=== PATIENT | female | born 1935 | race Caucasian/White ===

== ENCOUNTER 2019-02-20 19:58 | Inpatient (IN) ==
[2019-02-20 21:24] LABS: URINE SOURCE CATH
[2019-02-20 21:27] LABS: BILIRUBIN URINE NEGATIVE (NEGATIVE); BLOOD URINE NEGATIVE (NEGATIVE); COLOR YELLOW; GLUCOSE URINE NEGATIVE (NEGATIVE); KETONE URINE NEGATIVE (NEGATIVE); LEUKOCYTES URINE NEGATIVE (NEGATIVE); NITRITE URINE NEGATIVE (NEGATIVE); PROTEIN URINE NEGATIVE (NEGATIVE); TURBIDITY URINE CLEAR (CLEAR); UROBILINOGEN URINE NORMAL (NORMAL)
[2019-02-20 21:28] LABS: UR EPITHELIAL CELLS <10 /HPF (<10); URINE RBC <10 /HPF (<10); URINE WBC <10 /HPF (<10)
[2019-02-20 21:29] LABS: URINE BACTERIA NEGATIVE /HPF
[2019-02-20 21:42] LABS: HEMATOCRIT 32.2 % (37.0-47.0); HEMOGLOBIN 10.2 g/dL (12.0-16.0); LYMPH% 17.6 % (20.5-51.1); MCH 27.6 PG (27-31); MCHC 31.7 g/dL (33-37); MCV 87.3 FL (81-99); MPV 10.1 FL (7.4-10.4); NEUT% 74.1 % (42.2-75.2); PLT 184 X1000 (130-400); RBC 3.69 XMIL (4.2-5.4); RDW 14.9 % (11.5-14.5); WBC 10.01 X1000 (4.8-10.8)
[2019-02-20 21:43] LABS: BASO# 0.02 X1000 (0.0-0.2); BASO% 0.2 % (0.0-0.8); EOS# 0.24 X1000 (0.0-0.7); EOS% 2.4 % (0.0-10.0); IMM GRAN# 0.04 X1000 (0.0-0.04); IMM GRAN% 0.4 % (0.0-0.5); LYMPH# 1.76 X1000 (1.2-3.4); MONO# 0.53 X1000 (0.11-0.59); MONO% 5.3 % (1.7-9.3); NEUT# 7.42 X1000 (1.4-6.5)
--- NOTE | 2019-02-20 21:45 | PROVIDER DOCUMENTATION ---
This chart was entered by Miesha Marcial Scribe, acting as scribe for Arvind Bland MD. HPI-Musculoskeletal Pain/Inj - GENERAL Stated Complaint: FALL ROTATED RIGHT HIP Time Seen by Provider: 02/20/19 19:58 Source: patient - HX OF PRESENT ILLNESS-MUSKULOSKELTAL Nature of Presenting Problem: pt is a 83 yr old female presenting via EMS with complaint of right hip pain post fall, pt reports tonight while putting her pants on she lost her balance and fell onto her right side, pt does not believe she struck her head, denies any LOC, neck or back pain. pt is unable to ambulate or weight bear since fall. pt denies any other pain or complaints Quality of Pain: reports: aching Severity in ED: moderate Onset/Duration: just prior to arrival Timing: still present Modifying Factors: improves with: movement (worsens pain) Any recent injury?: Yes Locality of Occurance: Home Similar Symptoms Previously?: No Recently seen or treated by another doctor?: No - HIP/PELVIS PAIN/INJURY Hip Pain Location: reports: hip (R) Pain Radiation: reports: no radiation Context / Method of Injury: reports: fall Associated Symptoms: denies: lower back pain, muscle spasms, numbness in legs/feet, tingling in legs/feet, weakness in legs/feet Review of Systems - Adult - REVIEW OF SYSTEMS - ADULT Constitutional: reports: no symptoms reported Eyes: reports: no symptoms reported Ears, Nose, Mouth & Throat: reports: no symptoms reported Cardiovascular: denies: chest pain, palpitations, syncope Respiratory: denies: shortness of breath Gastrointestinal: denies: abdominal pain, nausea, vomiting Genitourinary: reports: no symptoms reported Musculoskeletal: reports: joint pain. denies: back pain, neck pain Integumentary: reports: no symptoms reported Neurological: denies: dizziness/vertigo, headache/migraines, syncope Psychiatric: reports: no symptoms reported Endocrine: reports: no symptoms reported Hematologic/Lymphatic: reports: no symptoms reported Allergic/Immunologic: reports: no symptoms reported All Other Systems: Reviewed and Negative Past History - Adult - PAST MEDICAL HISTORY-ADULT Review of Records: reports: Old Records Reviewed, Nursing Assessment Review, Medications Reviewed, Social history reviewed & non-contributory. Major Childhood Illnesses: reports: denies history Cardiovascular: reports: A-Fib, CHF, HTN Respiratory: reports: denies history Gastrointestinal: reports: denies history Obstetrical/Gynecological: reports: denies history Genitourinary: reports: denies history Musculoskeletal: reports: denies history Neurological: reports: denies history Endocrine/Immune: reports: Diabetes Other Conditions: reports: denies history - PRIOR SURGERIES/PROCEDURES Surgical/Procedure History: reports: appendectomy, orthopedic (extremity) - IMMUNIZATION STATUS Childhood Immunizations: See Nurse Assessment Flu Vaccine: See Nurse Assessment - FAMILY HISTORY Family History: reviewed, not pertinent - SOCIAL HISTORY Smoking: denies Substance Use: denies Living Situation: alone Physical Exam-Injury Related - Physical Exam-Injury Related Initial Vital Signs Reviewed: Yes General Appearance: appears well, alert, no apparent distress Immobilization?: negative: backboard, C-collar Eyes: PERRL/EOMI Head, Ears, Nose, Mouth & Throat: normocephalic/atraumatic, moist mucous membran es Neck: non-tender, full range of motion, supple, normal inspection Respiratory: chest non-tender, lungs clear, normal breath sounds Cardiovascular: normal peripheral pulses, regular rate, rhythm Peripheral Pulses: radial (R): 2+, radial (L): 2+, dorsalis-pedis (R): 2+, dorsalis-pedis (L): 2+ Abdominal Exam: normal bowel sounds, non tender, soft Back Exam: normal inspection, no CVA tenderness, no vertebral tenderness Extremity: no calf tenderness, normal capillary refill, tenderness (right hip), other (right leg short/rotated externally) Integumentary: normal color, warm/dry Neurologic: grossly normal Psych/Mental Status: normal mood/affect - Glascow Coma Score Best Eye Response ([place]): (4) open spontaneously Best Verbal Response ([place]): (5) oriented Best Motor Response ([place]): (6) obeys commands [place] Total: 15 Progress - PLAN OF CARE/RESULTS Progress/Plan/Lab Results: Orders Category Date Time Status Admit [facility] Routine AdmDCTranf 02/21/19 02:29 Active Activity - Strict Bedrest ORDERED Care 02/21/19 02:29 Active FSBS/Accucheck Result AC + HS Care 02/21/19 02:29 Active Richard Cath Insertion ORDERED Care 02/20/19 21:31 Completed Intake and Output-Strict ORDERED Care 02/21/19 02:29 Active Misc. NRSG Communication Order DIRECTED Care 02/21/19 00:40 Completed Nursing- MD Consult Request ROUTINE Care 02/21/19 00:42 Completed Vital Signs Order Q 4-HR ASSESS Care 02/21/19 02:29 Active Z-Document. for Tele Applied ORDERED Care 02/21/19 02:29 Completed Physician/Provider Consults Routine Cons 02/21/19 08:00 Ordered NPO Diet 02/21/19 00:01 Completed CHEST-1 VIEW [RAD] Stat Exams 02/20/19 20:[address] HEAD/C-SPINE W/O CONTRAST [CT] Stat Exams 02/20/19 20:[address] PELVIS W/O CONTRAST [CT] Stat Exams 02/20/19 20:18 Completed FEMUR MIN 2 VIEWS RIGHT [RAD] Stat Exams 02/20/19 20:18 Completed A1C HGB W EST AVG GLUCOSE [CHEM] Routine Lab 02/21/19 01:21 Completed BASIC METABOLIC PANEL [CHEM] Routine Lab 02/21/19 06:14 Completed CBC WITH DIFF [HEME] Routine Lab 02/21/19 06:14 Completed CBC WITH ELECTRONIC DIFF [HEME] Stat Lab 02/20/19 21:24 Completed COMPREHENSIVE METABOLIC PANEL [CHEM] Stat Lab 02/20/19 21:24 Completed PT [PROTIME WITH INR] [COAG] Stat Lab 02/21/19 01:21 Completed PTT [COAG] Stat Lab 02/21/19 01:21 Completed TSH Routine Lab 02/21/19 06:14 Completed TYPE & SCREEN [BBK] Stat Lab 02/21/19 01:21 Completed UA NIMS W/REFLEX CULT [URINALYSIS] Stat Lab 02/20/19 21:09 Completed 0.9% Sodium Chloride Inj [Ns] 1,000 ml Med 02/21/19 00:39 Discontinued IV 75 mls/hr 0.9% Sodium Chloride Inj [Ns] 1,000 ml Med 02/21/19 00:44 Discontinued IV 75 mls/hr Acetaminophen [Tylenol] Med 02/21/19 02:29 Discontinued 650 mg PO Q6H PRN PRN Carvedilol [Coreg] Med 02/21/19 09:00 Discontinued 3.125 mg PO BID Cyanocobalamin/FA/Pyridoxine [Foltx] Med 02/21/19 09:00 Active 1 each PO DAILY Insulin Lispro [Humalog] Med 02/21/19 07:00 Active See Protocol SUBQ 0700,1100,1600,2100 Morphine Med 02/20/19 23:45 Discontinued 2 mg IV NOW ONE Morphine Med 02/21/19 00:43 Discontinued 2 mg IV Q3H PRN PRN Ondansetron [Zofran] Med 02/20/19 23:44 Discontinued 4 mg IV NOW ONE Ondansetron [Zofran] Med 02/21/19 00:43 Active 4 mg IV Q4-6H PRN PRN PRAVAstatin [Pravachol] Med 02/21/19 09:00 Discontinued 10 mg PO DAILY Telemetry [OM.EQ] Routine Oth 02/21/19 02:29 Active EKG [EKG] Routine Ther 02/21/19 08:00 Completed EKG [EKG] Stat Ther 02/20/19 23:05 Draft Transfer/Admit Order [TRANSFER] Routine Transfer 02/21/19 00:44 Completed Result Diagrams: 02/24/19 06:15 02/23/19 16:11 - EKG 1 Time of EKG reading by physician:: 01:00 EKG Read and Signed by:: Arvind Bland EKG Interpretation (*Must complete 3 of following elements*): Abnormal (RBBB, left anteroir fasicular block) Rate: 55 Rhythm: afib with slow ventricular response [place]: normal QRS: RBB SD Interval: normal ST Wave: normal - XRAY 1 XRAY: Right XRAY Study: Femur Impression: Abnormal (Signed FEMUR MIN 2 VIEWS RIGHT - 02/20/2019 INDICATION: fall TECHNIQUE: Four views COMPARISON: None FINDINGS: There is a comminuted, nearly nondisplaced intertrochanteric fracture of the right proximal femur. No distal fractures. IMPRESSION: Slightly displaced comminuted intertrochanteric right hip fracture. Electronically signed by Los Olivia 02/20/2019 10:07 PM 02/20/192206 Interpreting Physician: Los Olivia MD Dictated Date/Time: 02/20/192205 cc: Arvind Bland MD; Jarek Blank MD) Comparison with other Films: no prior study 2 XRAY Study: Chest Impression: Abnormal ( CHEST-1 VIEW - 02/20/2019 INDICATION: fall COMPARISON: 03/29/2017 FINDINGS: There is borderline cardiomegaly. Pulmonary vascularity is normal. No infiltrates or edema. IMPRESSION: Cardiomegaly. Electronically signed by Los Olivia 02/20/2019 10:06 PM 02/20/192205 Interpreting Physician: Los Olivia MD Dictated Date/Time: 02/20/192205 cc: Arvind Bland MD; Jarek Blank MD) - CT/MRI 1 CT Study: Pelvis Impression: Abnormal ( CT PELVIS W/O CONTRAST - 02/20/2019 INDICATION: fall COMPARISON: None FINDINGS: There is a slightly displaced, severely comminuted intertrochanteric right hip fracture. The left hip is intact. There is moderate degeneration of the sacroiliac joints and symphysis pubis. IMPRESSION: Severely comminuted right intertrochanteric hip fracture. This exam was performed using automated exposure control, adjustment of mA or kV according to patient size, and/or use of iterative reconstruction technique Electronically signed by Los Olivia 02/20/2019 9:55 PM 02/20/192154 Interpreting Physician: Los Olivia MD Dictated Date/Time: 02/20/192152 cc: Arvind Bland MD; Jarek Blank MD) Comparison with other Films: no prior study 2 CT Study: Head Impression: Normal ( CT HEAD/C-SPINE W/O CONTRAST - 02/20/2019 INDICATION: fall COMPARISON: None FINDINGS: Head CT: There is some mild periventricular white matter chronic microvascular disease. The ventricles and sulci are normal in size and contour. No intracranial mass or hemorrhage. The skull is intact. The sinuses are clear. Cervical spine: Alignment is anatomic. Vertebral body heights and intervertebral disc spaces are preserved. There is mild disc degeneration at C5-6 and C6-7. No fracture or subluxation. No central canal stenosis. IMPRESSION: No acute injury. This exam was performed using automated exposure control, adjustment of mA or kV according to patient size, and/or use of iterative reconstruction technique Electronically signed by Los Olivia 02/20/2019 9:50 PM 02/20/192149 Interpreting Physician: Los Olivia MD Dictated Date/Time: 02/20/192146 cc: Arvind Bland MD; Jarek Blank MD) Comparison with other Films: no prior study - CONSULTS/PCP/HOSPITALIST Notification #1 *Consult/PCP/Hospitalist*: Dr Mabry Time Discussed: 23:10 Reason/Comments: discussed plan of care for pt admit Consult Disposition: Admit #2 Consult: Dr Ahn Time Discussed: 00:10 Reason/Comments: plan of care for admitted pt Consult Disposition: other (will consult on pt in AM, admit to hospitalist) Departure - Departure Date of Disposition Decision: 02/21/19 Time of Disposition Decision: 00:15 DIAGNOSIS: Intertrochanteric fracture of right femur Disposition: ADMITTED INPATIENT 09 Certified Medical Emergency: Emergent Condition: Stable - Critical Care Note This patient required my direct & personal management of CC.: No Attestation - Physician/ VALERI Attestation Patient care was provided by Advanced Practice Provider:: No The physician spent face to face time with patient:: Yes Advanced Practice Provider documentation review:: Supervising physician onsite and consulted in the evaluation and care of this patient. The physician did have a face to face encounter with the patient. This chart was documented by the indicated scribe, (Miesha Marcial Scribe) and accurately reflects the services I performed and decisions made by me, Arvind Bland MD, as attested by the provider's signature.
--- NOTE | 2019-02-20 21:53 | Diag Imaging Result Doc PS360 ---
CT HEAD/C-SPINE W/O CONTRAST - 02/20/2019 INDICATION: fall COMPARISON: None FINDINGS: Head CT: There is some mild periventricular white matter chronic microvascular disease. The ventricles and sulci are normal in size and contour. No intracranial mass or hemorrhage. The skull is intact. The sinuses are clear. Cervical spine: Alignment is anatomic. Vertebral body heights and intervertebral disc spaces are preserved. There is mild disc degeneration at C5-6 and C6-7. No fracture or subluxation. No central canal stenosis. IMPRESSION: No acute injury. This exam was performed using automated exposure control, adjustment of mA or kV according to patient size, and/or use of iterative reconstruction technique Electronically signed by Los Olivia 02/20/2019 9:50 PM
[2019-02-20 21:55] LABS: ALB/GLOB RATIO 1.4; CALCIUM 9.3 mg/dL (8.8-10.2); CREATININE 1.1 mg/dL (0.5-0.9); POTASSIUM 4.6 mmol/L (3.5-5.1); TOTAL BILIRUBIN 0.26 mg/dL (0.20-1.00); TOTAL PROTEIN 6.8 g/dL (6.3-8.3)
--- NOTE | 2019-02-20 21:57 | Diag Imaging Result Doc PS360 ---
CT PELVIS W/O CONTRAST - 02/20/2019 INDICATION: fall COMPARISON: None FINDINGS: There is a slightly displaced, severely comminuted intertrochanteric right hip fracture. The left hip is intact. There is moderate degeneration of the sacroiliac joints and symphysis pubis. IMPRESSION: Severely comminuted right intertrochanteric hip fracture. This exam was performed using automated exposure control, adjustment of mA or kV according to patient size, and/or use of iterative reconstruction technique Electronically signed by Los Olivia 02/20/2019 9:55 PM
--- NOTE | 2019-02-20 22:09 | Diag Imaging Result Doc PS360 ---
CHEST-1 VIEW - 02/20/2019 INDICATION: fall COMPARISON: 03/29/2017 FINDINGS: There is borderline cardiomegaly. Pulmonary vascularity is normal. No infiltrates or edema. IMPRESSION: Cardiomegaly. Electronically signed by Los Olivia 02/20/2019 10:06 PM
--- NOTE | 2019-02-20 22:09 | Diag Imaging Result Doc PS360 ---
FEMUR MIN 2 VIEWS RIGHT - 02/20/2019 INDICATION: fall TECHNIQUE: Four views COMPARISON: None FINDINGS: There is a comminuted, nearly nondisplaced intertrochanteric fracture of the right proximal femur. No distal fractures. IMPRESSION: Slightly displaced comminuted intertrochanteric right hip fracture. Electronically signed by Los Olivia 02/20/2019 10:07 PM
[2019-02-20] MEDS ORDERED: MORPHINE IV ONE ×2 (23:44→23:45)
[2019-02-20] MEDS ORDERED: ZOFRAN IV ONE (23:44)
[2019-02-21] MEDS ORDERED: NS 1,000 ML IV ONE ×2 (00:39→00:44)
[2019-02-21] MEDS ORDERED: ZOFRAN IV PRN ×2 (00:43→16:14)
--- NOTE | 2019-02-21 01:20 | EKG Report ---
Test Performed on : 02/21/2019 01:00:20 AM Test Reason : CP Blood Pressure : / mmHG Vent. Rate : 055 BPM Atrial Rate : 300 BPM P-R Int : 000 ms QRS Dur : 128 ms QT Int : 460 ms P-R-T Axes : 000 -70 -23 degrees QTc Int : 440 ms Atrial fibrillation. with slow ventricular response. Right bundle branch block Left anterior fascicular block Bifascicular block Abnormal ECG When compared with ECG of 22-MAR-2018 17:59, Significant changes have occurred Unconfirmed Result
[2019-02-21 02:04] LABS: INR 1.65; PROTIME 19.9 Seconds (11.0-16.0)
[2019-02-21 02:05] LABS: PTT 36.9 Seconds (22.3-41.8)
[2019-02-21] MEDS: MORPHINE IV PRN ×2 (02:05→05:05)
[2019-02-21] MEDS ORDERED: TYLENOL PO PRN (02:29)
[2019-02-21 03:04] LABS: HEMOGLOBIN A1C 6.4 % (4.8-6.0)
--- NOTE | 2019-02-21 06:20 | HISTORY AND PHYSICAL ---
CHIEF COMPLAINT: Fall with hip pain. HISTORY OF PRESENT ILLNESS: Ms. Mirza is a very pleasant 83-year-old female who came into the emergency room after having a fall with right hip pain status post fall. She reports she was putting her pajamas on, lost balance and fell to the right side. Does not believe she hit her head. Denies any loss of consciousness, neck or back pain. Unable to ambulate or bear weight since the fall, and is unable to move the right lower extremity related to the pain. CT scan of her pelvis showed a severely comminuted right intertrochanteric hip fracture. She will be admitted with Orthopedics consultation. PAST MEDICAL HISTORY: Hyperlipidemia, congestive heart failure, diabetes mellitus type 2. PREVIOUS SURGICAL HISTORY: Appendectomy, nicholas in left leg after fracture. SOCIAL HISTORY: Lives alone. She is . No tobacco, alcohol, or illicit drugs. She does have family to help care for her. FAMILY HISTORY: Father had prostate cancer. Mother had diabetes mellitus. A sister had diabetes mellitus as well. ALLERGIES: PENICILLIN. HOME MEDICATIONS: Eliquis 5 mg p.o. b.i.d., enalapril 20 mg p.o. daily, Lasix 20 mg p.o. daily, glyburide 2.5 mg p.o. daily, lisinopril 20 mg p.o. daily, metformin 500 mg p.o. b.i.d., potassium chloride 10 mEq p.o. daily, Onglyza 5 mg p.o. daily, carvedilol 3.125 mg p.o. b.i.d., Foltx 1 p.o. daily, pravastatin 10 mg p.o. daily. REVIEW OF SYSTEMS: A 14-point review of systems conducted with the patient. Pertinent positives listed above in the HPI. All other systems were reviewed and found to be negative. PHYSICAL EXAMINATION: VITAL SIGNS: Temperature 98.3, pulse 57, respirations 18, blood pressure 155/85, oxygen saturation 95% on room air. GENERAL: An 83-year-old female, very pleasant, alert and oriented x3, answers all questions appropriately. HEENT: Head is atraumatic, normocephalic. Pupils equal, round, react to light. Extraocular eye movements intact. Sclerae are anicteric. Conjunctivae are mildly pale. Oral mucosa is mildly dry. NECK: Supple. No JVD. No thyromegaly. Trachea is midline. No cervical lymphadenopathy. CARDIAC: S1, S2 appreciated. No murmurs, rubs or gallops. LUNGS: Clear to auscultation bilaterally. No rhonchi, wheezes or rales. Symmetric rise and fall with respirations. ABDOMEN: Soft, nondistended, nontender. Bowel sounds present in all 4 quadrants, normoactive. No pulsatile masses or organomegaly. EXTREMITIES: No clubbing, cyanosis or edema. Multiple areas of ecchymoses noted on bilateral upper and lower extremities. Left lower extremity has a large raised hematoma of about 4 cm; 2+ pedal pulses bilaterally. Right lower extremity is neurovascularly intact. MUSCULOSKELETAL: Patient defers movement of right lower extremity related to pain. She can wiggle her toes. She was not able to bear weight. Left lower extremity appears to have normal range of motion as well as both upper extremities. SKIN: Warm, dry and intact. Multiple areas of ecchymoses with a large hematoma that was noted above on the left lower extremity. NEUROLOGICAL: Alert and oriented x3. Cranial nerves II-XII grossly intact. DIAGNOSTIC DATA: CT of the pelvis shows a severely comminuted right intertrochanteric hip fracture. CT of the C-spine: Cervical spine showed mild degenerative disk disease at C5-C6, C6- C7. No fracture or subluxation. No central canal stenosis. CT of the head shows mild periventricular white matter chronic microvascular disease. LABORATORY DATA: WBC 10.01, hemoglobin 10.2, hematocrit 32.3, platelet count 185. Sodium 139, potassium 4.6, chloride 104, carbon dioxide 23, BUN 32, creatinine 1.1, glucose 152. Urine unremarkable. ASSESSMENT AND PLAN: 1. Right intertrochanteric hip fracture. Consult Orthopedics. Homeland traction if recommended per Orthopedics. Morphine IV for pain. Zofran as needed for nausea. Hold patient's Eliquis. 2. Hypertension. Will hold LILIANA inhibitors. 3. She has an acute kidney injury. Also will hold any oral antihyperglycemics. 4. Diabetes mellitus type 2. Sliding scale insulin and fingerstick blood sugar. Do not treat unless blood sugar is greater than 200. 5. Acute kidney injury. Will give 1 L of normal saline at 75 mL an hour while watching the patient's fluid volume status. Aware that she has congestive heart failure. Will continue to monitor. 6. Further recommendations per the patient's clinical course. FAMILY DOCTOR: Jarek Blank MD Dictated by ZAK Garcia for Roberto Mabry MD cc: ZAK Garcia MD Gregory S. Cheatham, MD Independent bedside exam with [employer] was performed. Hold Lisinopril except if SBP is >180 in order to avoid worsening MATTI . R. short an external rotated leg noted on exam with good distal pulses. MTDD
[2019-02-21] MEDS: HUMALOG SUBQ SCH ×4 (06:33→23:16)
[2019-02-21 06:43] LABS: BASO# 0.02 X1000 (0.0-0.2); BASO% 0.2 % (0.0-0.8); EOS# 0.27 X1000 (0.0-0.7); EOS% 2.6 % (0.0-10.0); HEMOGLOBIN 9.1 g/dL (12.0-16.0); IMM GRAN# 0.03 X1000 (0.0-0.04); IMM GRAN% 0.3 % (0.0-0.5); LYMPH# 1.84 X1000 (1.2-3.4); MCH 27.6 PG (27-31); MCHC 31.4 g/dL (33-37); MCV 87.9 FL (81-99); MONO# 0.74 X1000 (0.11-0.59); MONO% 7.2 % (1.7-9.3); MPV 10.3 FL (7.4-10.4); NEUT# 7.32 X1000 (1.4-6.5); NEUT% 71.7 % (42.2-75.2); PLT 155 X1000 (130-400); RDW 14.9 % (11.5-14.5); WBC 10.22 X1000 (4.8-10.8)
[2019-02-21 07:24] LABS: POTASSIUM 4.2 mmol/L (3.5-5.1)
[2019-02-21 07:25] LABS: CALCIUM 8.2 mg/dL (8.8-10.2)
--- NOTE | 2019-02-21 08:13 | EKG Report ---
Test Performed on : 02/21/2019 07:10:55 AM Test Reason : chest pain Blood Pressure : / mmHG Vent. Rate : 059 BPM Atrial Rate : 326 BPM P-R Int : 000 ms QRS Dur : 126 ms QT Int : 488 ms P-R-T Axes : 000 -78 -37 degrees QTc Int : 483 ms Atrial fibrillation. with slow ventricular response. Right bundle branch block Left anterior fascicular block Bifascicular block Abnormal ECG When compared with ECG of 21-FEB-2019 01:00, (Unconfirmed) No significant change was found Confirmed by Everrado BERNARDO, Carl Killian ([id number]) on 02/21/2019 1:52:18 PM
[2019-02-21] MEDS: COREG PO SCH ×2 (09:29→20:22)
[2019-02-21] MEDS: PRAVACHOL PO SCH (09:29)
[2019-02-21] MEDS: FOLTX PO SCH (09:29)
[2019-02-21] MEDS ORDERED: KEFZOL 1 GM/D5W 1 GM/50 ML IVPB IV ONE (09:36)
[2019-02-21] MEDS ORDERED: VANCOMYCIN 1 GM/NS 1 GM/250 ML IVPB IV ONE (10:12)
[2019-02-21] MEDS ORDERED: XYLOCAINE-MPF 2% ONE (12:37)
[2019-02-21] MEDS ORDERED: DIPRIVAN 1% ONE (12:38)
[2019-02-21] MEDS ORDERED: VANCOMYCIN 1 GM/NS 1 GM/250 ML IVPB ONE (13:25)
[2019-02-21] MEDS ORDERED: EPHEDRINE ONE (13:56)
[2019-02-21] MEDS ORDERED: SODIUM CHLORIDE 0.9% 10 ML ONE (13:56)
[2019-02-21] MEDS ORDERED: NEO-SYNEPHRINE ONE (13:56)
[2019-02-21] MEDS ORDERED: ZOFRAN ONE (14:16)
[2019-02-21] MEDS ORDERED: DECADRON ONE (14:16)
[2019-02-21] MEDS ORDERED: MORPHINE IV PRN (16:14)
[2019-02-21] MEDS ORDERED: MILK OF MAGNESIA PO PRN (16:14)
[2019-02-21] MEDS ORDERED: HALDOL IV PRN (16:15)
--- NOTE | 2019-02-21 16:25 | ORTHOPAEDICS CONSULTATION ---
DATE: 02/21/2019 CHIEF COMPLAINT: Fall, with hip pain. HISTORY OF PRESENT ILLNESS: Ms. Mirza is an 83-year-old female who came to the emergency department after a fall and started complaining of right hip pain after her fall. She states she was trying to put some clothes on and that she lost her balance and fell on her right side. She denies LOC. She has been unable to ambulate or bear weight on the right side since the fall. A CT scan was obtained and it showed a comminuted right intertrochanteric hip fracture. Orthopedics was consulted to come and see the patient. PAST MEDICAL HISTORY: Includes, hyperlipidemia, diabetes mellitus type 2, and congestive heart failure. PREVIOUS SURGICAL HISTORY: Includes, appendectomy and nicholas placement in one of her legs. SOCIAL HISTORY: She lives alone and she is . She denies alcohol, tobacco, or drug use. ALLERGIES: She is allergic to penicillin. FAMILY HISTORY: Positive for prostate cancer in father. MEDICATIONS: Eliquis 5 mg b.i.d., Enalapril 20 mg daily, Lasix 20 mg daily, Glyburide 2.5 mg daily, lisinopril 20 mg p.o. daily, metformin 500 mg b.i.d., potassium chloride 10 mEq p.o. daily, Onglyza 5 mg p.o. daily, carvedilol 3.125 mg p.o. b.i.d., Foltx 1 mg p.o. daily, and pravastatin 10 mg p.o. daily REVIEW OF SYSTEMS: A 12 point review of systems was performed, with pertinent positives listed in the HPI. PHYSICAL EXAMINATION: General: the patient is awake and alert and sitting in hospital bed comfortably. HEENT: Head is atraumatic and normocephalic. Pupils are equal, round, and reactive to light. Neck: Supple. Cardiovascular: Regular rate and rhythm although she did show some signs of atrial fibrillation on the monitor. Lungs: Equal chest expansion, rise and fall. Abdomen: Soft. Nontender. Extremities: Right lower extremity slightly shortened and externally rotated. There is some tenderness along the right lateral hip with some ecchymosis present. There is good sensation. There is no obvious signs of infection at this time. IMAGING: CT of pelvis showed comminuted right intertrochanteric hip fracture. CT of the cervical spine did show some mild degenerative disease at C5 through C7. There is no fracture or subluxation in the cervical spine. CT of the head shows white matter chronic microvascular disease and no acute process. LABORATORY DATA: White blood cells 10.22, red blood cells 3.3, hemoglobin 9.1, hematocrit 29, platelets 155,000. INR is 1.65. Sodium 135, potassium 4.2, chloride 103, BUN 29, creatinine 1.0, GFR 53, glucose 119. Hemoglobin A1c 6.4. Calcium 8.2. Urinalysis was negative. ASSESSMENT: Right intertrochanteric hip fracture. PLAN: We plan to place a TFN in her right hip today. The patient agrees with this procedure. The risks and benefits of the procedure was went over with the patient and family at bedside. They agree to all of the risks, including . Dictated by ZAK Ramirez for Jose G Ahn MD cc: ZAK Ramirez MD
[2019-02-21] MEDS: NS 1,000 ML IV SCH (17:18)
[2019-02-21] MEDS: TYLENOL PO SCH (17:23)
--- NOTE | 2019-02-21 18:42 | PROGRESS NOTE ---
DATE: 02/21/2019 INTERVAL HISTORY: Ms. Mirza admitted after a mechanical fall and right femoral neck comminuted fracture. According to history provided to me by the patient, she took Eliquis 5 mg yesterday night. I called the operating room and told the orthopedic surgeon about it and one of his team members took the message. SUBJECTIVE: Patient is denying any complaints. She is about to go for hip surgery. VITAL SIGNS: Temperature 98.4 degrees, pulse 61, respiratory rate 18, blood pressure 103/45. She is saturating 95% 2 L nasal cannula. PHYSICAL EXAMINATION: General: Does not appear in any acute distress. HEENT: Oral cavity is moist. Lungs: Air entry bilaterally equal. No wheeze, rhonchi, crackles. Cardiovascular: S1, S2 normal. No murmur, rub, or gallop. Heart rhythm is irregularly irregular. Abdomen: Soft, nontender. Extremities: No lower extremity edema. Her dorsalis pedis pulses are intact bilateral. She is able to wiggle toes. She is alert and oriented x3. Multiple family members by the bedside. LABORATORY DATA: Suggestive of normocytic anemia. Normal platelet count. INR of 1.6 likely because of Eliquis use. She does have kidney dysfunction likely acute kidney injury. Her hemoglobin A1c is 6.4, TSH is normal. No new microbiological data. IMAGING: Previously pelvic CT had severely comminuted right intertrochanteric hip fracture. ASSESSMENT AND PLAN: 1. Right femoral intertrochanteric neck fracture comminuted. Orthopedic team is planning surgery. Continue intravenous morphine for pain. Zofran as needed for nausea. Her last dose of Eliquis was 02/20/2019 at nighttime, which I will resume after surgery for deep venous thrombosis prophylaxis as well. 2. Essential hypertension, currently normotensive. She is on carvedilol as well as lisinopril. I will hold lisinopril for now because of her acute kidney injury. She is status post intravenous fluids for her acute kidney injury with improvement in her kidney function. 3. History of vhy-oxkcicn-zuxjpqjll diabetes mellitus. Continue sliding scale insulin. 4. History of chronic atrial fibrillation with bifascicular block. I will resume her Eliquis postoperatively. DISPOSITION: I will continue to monitor the patient inside the hospital. Plan of care discussed with her. All questions have been answered. cc: Otto Rivers MD
[2019-02-21] MEDS: PERIDEX MT SCH (20:22)
[2019-02-21] MEDS: COLACE PO SCH (20:22)
--- NOTE | 2019-02-21 21:49 | OPERATIVE NOTE ---
PROCEDURE DATE: 02/21/2019 PREOPERATIVE DIAGNOSIS: Left intertrochanteric hip fracture. POSTOPERATIVE DIAGNOSIS: Left intertrochanteric hip fracture. PROCEDURE PERFORMED: Left long trochanteric fixation nail placement using a 400 mm nail, a 95 mm helical blade and 44 and 54 mm distal locking screws. ANESTHESIA: General. SURGEON: Jose G Ahn MD SHUTDOWN PLANNER: ZAK Ramirez COMPLICATIONS: None. BLOOD LOSS: Minimal. DESCRIPTION OF PROCEDURE: The patient was brought to the operating suite and placed in the supine position. After satisfactory administration of general anesthesia, the patient was placed on the OSI table in the usual position for right hip, and then the right hip was prepped and draped in the usual sterile fashion. The hip was reduced under fluoroscopy. An incision was made proximal to the tip of the greater trochanter. It was dissected sharply through the skin. A guide pin was placed in the center of the femoral canal on AP and lateral images. It was reamed with a cannulated reamer and then the ball-tipped guidewire was buried in the distal metaphysis. It was reamed to 13 mm with flexible reamers and then measured to 400 mm. A 400 mm nail was driven into place. Once it was properly seated, through a stab incision laterally a guide pin was placed in the center of the femoral head on AP and lateral images. Once it was verified to be in good position, it was measured to 95 mm. A 95 mm cannulated reamer was reamed over the guide pin and then the helical blade was driven into place. It was locked proximally and then released half a turn to allow for compression. Attention was then directed to the distal locking screws. Through stab incisions these were drilled using the perfect seneca technique. These were measured and the screw lengths of 44 mm and 54 mm were driven into place. Excellent placement of the screws was obtained on AP and lateral images. The wounds were copiously irrigated, skin edges were approximated with 2-0 Vicryl, closed with skin nadya. A sterile dressing was applied. The patient tolerated the procedure well, without complication. At the end the procedure, all counts were correct x2. The patient was transferred to the recovery room in stable condition. cc: Jose G Ahn MD Unknown Attending,
[2019-02-21] MEDS: ELIQUIS PO SCH (23:15)
[2019-02-22] MEDS: TYLENOL PO SCH ×3 (01:06→17:24)
[2019-02-22] MEDS: VANCOMYCIN 1 GM/NS 1 GM/250 ML IVPB IV SCH ×2 (01:10→18:30)
[2019-02-22] MEDS: NS 1,000 ML IV SCH (05:23)
[2019-02-22] MEDS: HUMALOG SUBQ SCH ×4 (06:44→22:39)
[2019-02-22 07:56] LABS: POTASSIUM 4.8 mmol/L (3.5-5.1)
[2019-02-22 07:57] LABS: BASO# 0.01 X1000 (0.0-0.2); BASO% 0.1 % (0.0-0.8); EOS% 1.2 % (0.0-10.0); HEMATOCRIT 24.2 % (37.0-47.0); HEMOGLOBIN 7.5 g/dL (12.0-16.0); LYMPH% 11.6 % (20.5-51.1); MCH 27.8 PG (27-31); MCV 89.6 FL (81-99); MONO# 0.66 X1000 (0.11-0.59); MONO% 7.7 % (1.7-9.3); MPV 10.7 FL (7.4-10.4); NEUT# 6.85 X1000 (1.4-6.5); NEUT% 79.4 % (42.2-75.2); PLT 119 X1000 (130-400); RDW 15.1 % (11.5-14.5); WBC 8.62 X1000 (4.8-10.8)
[2019-02-22] MEDS: FOLTX PO SCH (10:02)
[2019-02-22] MEDS: PRAVACHOL PO SCH (10:02)
[2019-02-22] MEDS: ELIQUIS PO SCH ×2 (10:03→22:39)
[2019-02-22] MEDS: PERIDEX MT SCH ×2 (10:03→22:39)
[2019-02-22] MEDS: FERROUS SULFATE PO SCH (10:03)
[2019-02-22] MEDS: COREG PO SCH ×2 (10:03→22:38)
[2019-02-22] MEDS ORDERED: NS 500 ML IV ONE (10:54)
[2019-02-22] MEDS ORDERED: BENADRYL PO ONE (10:54)
[2019-02-22] MEDS ORDERED: TYLENOL PO ONE (10:54)
[2019-02-22] MEDS ORDERED: LASIX IV SCH (11:00)
[2019-02-22] MEDS ORDERED: NS 500 ML IV SCH (12:00)
--- NOTE | 2019-02-22 12:10 | ORTHOPAEDICS PROGRESS NOTE ---
DATE: 02/22/2019 SUBJECTIVE: The patient is a pleasant 83-year-old female who is 1 day status post intramedullary nailing of the right femur per Dr. Ahn. She is currently resting comfortably. She is currently resting comfortably. OBJECTIVE: On physical examination, the patient's right lower extremity dressing is intact. Calf is soft. She is able to flex her toes. She is grossly neurovascularly intact. DIAGNOSTIC DATA: Labs are pending. IMPRESSION: Postoperative day number 1 status post intramedullary nailing of the right femur. PLAN: At this point, we will consult Physical Therapy for mobilization with weightbearing as tolerated to right lower extremity. All questions answered. cc: Kj Oconnor MD
[2019-02-22] MEDS: OXY IR PO PRN (14:53)
--- NOTE | 2019-02-22 15:22 | ORTHOPAEDICS PROGRESS NOTE ---
DATE: 02/22/2019 SUBJECTIVE: Anay Mirza is an 83-year-old female who is postoperative day 1 from a right TFN. She has no complaints. She has been ambulating well. She has minimal pain and has been walking with physical therapy. She is sitting in the chair comfortably. OBJECTIVE: She is a well-developed, well-nourished female. She is alert, oriented, and cooperative with examination. Her dressing is clean, dry, intact. Her leg is neurovascularly intact. She has no sign of infection or deep venous thrombosis. She does appear to be pale, particularly her oropharynx and her eyelids. She is also tachycardic. Her hemoglobin is 7.5. Her hematocrit is 24.2. ASSESSMENT: Stable right TFN with acute blood loss anemia in the presence of chronic anemia. PLAN: I am going to transfuse her 2 units since she has a history of congestive heart failure. I will plan on Lasix between units. She will continue to work on ambulation. We will change her dressing tomorrow. cc: Jose G Ahn MD
[2019-02-22] MEDS ORDERED: LASIX IV ONE (18:36)
--- NOTE | 2019-02-22 19:48 | PROGRESS NOTE ---
DATE: 02/22/2019 INTERVAL HISTORY: She underwent trochanteric femoral nailing of the right femur yesterday, which she tolerated well. She does have a drop in her hemoglobin. She is getting 2 units of red blood cells ordered by the orthopaedic team. By the time I evaluated her, she was about to be done with her 2nd unit of transfusion. SUBJECTIVE: She denies any chest pain or shortness of breath or palpitations. We discussed about her atrial fibrillation, Eliquis, and functional status. She states that she needed some help while walking inside the room today using a walker. VITALS: Temperature 98.1 degrees, pulse 99, respiratory blood 18, pressure 90/40. She does have saturation of 92% on room air. PHYSICAL EXAMINATION: General: Does not appear in acute distress. Oral cavity is moist. Lungs: She has inspiratory crackles, bilateral infrascapular region. No wheezes or rhonchi. Cardiovascular: S1, S2. Irregularly irregular. No murmur, rub, or gallop. Abdomen: Soft, nontender. Extremities: No lower extremity edema. Right lower extremity is has a bandage. LABS: Suggestive of acute blood loss anemia with hemoglobin of 7.5, platelet count of 119. Her creatinine is currently stable. ASSESSMENT AND PLAN: 1. Right femoral neck comminuted fracture status post trochanteric femoral nailing on 02/21/2019. Continue pain regimen including oxycodone, morphine as per orthopaedic team's recommendation. She is on Eliquis, which is sufficient for her DVT prophylaxis postoperatively. 2. Acute blood loss anemia due to prior use of Eliquis and orthopedic surgery. She is getting her second unit of packed red blood cells. Follow up on hemoglobin tomorrow. 3. History of essential hypertension. Currently, her blood pressure is on the lower side. She is on carvedilol as well as lisinopril. I will hold lisinopril and will put holding parameters on carvedilol. 4. History of gcw-sqrogzc-cinmirmqc diabetes mellitus. 5. History of chronic atrial fibrillation and bifascicular block. Continue Eliquis. 6. Disposition. The patient's functional status appears to be good. Once cleared by Orthopaedics, I may consider discharging her home with home PT. cc: Otto Rivers MD
[2019-02-22] MEDS: COLACE PO SCH (22:38)
[2019-02-23] MEDS: TYLENOL PO SCH ×3 (00:02→17:37)
[2019-02-23 06:45] LABS: HEMATOCRIT 31.8 % (37.0-47.0)
[2019-02-23] MEDS: HUMALOG SUBQ SCH ×4 (06:51→22:38)
[2019-02-23] MEDS: FERROUS SULFATE PO SCH (08:47)
[2019-02-23] MEDS: ELIQUIS PO SCH ×2 (10:12→22:38)
[2019-02-23] MEDS: PRAVACHOL PO SCH (10:12)
[2019-02-23] MEDS: FOLTX PO SCH (10:12)
[2019-02-23] MEDS: PERIDEX MT SCH ×2 (10:13→22:38)
[2019-02-23] MEDS: COREG PO SCH ×2 (10:16→22:38)
--- NOTE | 2019-02-23 10:45 | ORTHOPAEDICS PROGRESS NOTE ---
DATE: 02/23/2019 SUBJECTIVE: Jaky Mirza is an 83-year-old female who is postoperative day 2 from a right TFN. She has no complaints. OBJECTIVE: She is a well developed, well nourished female. She is alert and oriented, and cooperative with exam. Her wounds are clean, dry, intact without sign of infection. She has walked well with physical therapy, approximately 30 feet. Her hematocrit is stable today at 30. IMPRESSION: Stable right TFN. PLAN: She will likely go to rehab tomorrow. She will continue weightbearing as tolerated. I will see her back in the office in 10 to 14 days. cc: Jose G Ahn MD
--- NOTE | 2019-02-23 14:35 | PROGRESS NOTE ---
DATE: 02/23/2019 INTERVAL HISTORY: She received 2 units of blood transfusion, which she tolerated well. She also received 40 of IV and then 20 of IV Lasix after each transfusion. She did not have any chest pain, shortness of breath. Currently, she states that she did not have appetite and is not feeling as great as yesterday, but does not have any specific complaints. She denies chest pain, shortness of breath, cough, nausea, vomiting, abdominal pain. VITALS: Temperature 97.8 degrees, pulse 69, respiratory rate 18, blood pressure 98/60. She is saturating 100% on room air. PHYSICAL EXAMINATION: General: Does not appear in acute distress. Oral cavity is moist. Air entry bilaterally equal. No wheeze, rhonchi, or crackles. Cardiovascular: S1, S2 normal. No murmur. Irregularly irregular, atrial fibrillation on the bedside monitor. No murmur, rub, or gallop. Abdomen: Soft, nontender. No lower extremity edema. Right lower extremity surgery site on the lateral upper thigh has mild oozing without any pus. LABS: Suggestive of appropriate rise of hemoglobin to 10. Her blood glucose is 179. MICROBIOLOGY: No data. IMAGING: No new data. ASSESSMENT AND PLAN: 1. Right femoral neck comminuted fracture, status post trochanteric femoral nailing on 02/21/2019. Continue pain regimen including oxycodone and morphine as per orthopedic recommendation. She is on Eliquis, which is sufficient for deep venous thrombosis prophylaxis postoperatively. 2. Acute blood loss anemia due to prior use of Eliquis as well as orthopedic surgery, status post 2 units of packed red blood cells with appropriate rise. I will continue to monitor hemoglobin. 3. Weakness: I will get BMP to rule out MATTI, electrolyte disturbance since she received Lasix yesterday. 3. History of essential hypertension. Continue home carvedilol with holding parameters and hold lisinopril for now. 4. History of hyi-fkwuaeh-lpubqmftv diabetes mellitus; chronic atrial fibrillation with bifascicular block, currently stable. I will continue her on Eliquis. 5. Disposition. Orthopedic team has recommended rehab. Social work rehab consult has been placed. Awaiting bed availability. Plan of care discussed with the patient and multiple family members including granddaughter and great-granddaughter. All of their questions have been answered. cc: Otto Rivers MD MTDD
[2019-02-23 16:45] LABS: CALCIUM 7.9 mg/dL (8.8-10.2); CREATININE 1.4 mg/dL (0.5-0.9); POTASSIUM 4.6 mmol/L (3.5-5.1)
[2019-02-23] MEDS ORDERED: LR 1,000 ML IV SCH (18:00)
[2019-02-23] MEDS: COLACE PO SCH (22:37)
[2019-02-24] MEDS: TYLENOL PO SCH ×3 (01:52→19:09)
[2019-02-24 06:58] LABS: HEMATOCRIT 28.8 % (37.0-47.0); HEMOGLOBIN 9.1 g/dL (12.0-16.0)
[2019-02-24] MEDS: HUMALOG SUBQ SCH ×4 (07:05→21:45)
[2019-02-24] MEDS: FERROUS SULFATE PO SCH (10:40)
[2019-02-24] MEDS: ELIQUIS PO SCH ×2 (10:40→22:08)
[2019-02-24] MEDS: FOLTX PO SCH (10:40)
[2019-02-24] MEDS: PERIDEX MT SCH ×2 (10:41→22:09)
[2019-02-24] MEDS: OXY IR PO PRN ×2 (10:42→22:08)
[2019-02-24] MEDS: COREG PO SCH ×2 (10:43→22:08)
[2019-02-24] MEDS: PRAVACHOL PO SCH (10:43)
--- NOTE | 2019-02-24 18:40 | PROGRESS NOTE ---
DATE: 02/24/2019 INTERVAL HISTORY: No acute events overnight. Rehab referrals have been placed. Patient denies any chest pain, shortness of breath. She is coughing but she says she has had cough before as well and it has been ongoing problem. She denies any worsening of the cough though . She states she was able to walk using walker with physical therapy's help. VITALS: Temperature 98.3 degrees, pulse 86, respiratory rate 16, blood pressure 114/71 saturating 97% on room air. She states she is feeling much better today as compared to yesterday. Air entry bilateral equal. No wheeze, rhonchi, crackles. S1, S2 normal, appears irregular. No murmur, rub or gallop. Abdomen is soft, nontender. No lower extremity edema. Her right lateral upper thigh incision is only mildly tender. LABS: Suggestive of hemoglobin of 9.1, her sugar is 148. ASSESSMENT AND PLAN: 1. Right femoral neck comminuted fracture status post trochanteric femoral nailing on February 21. Continue oxycodone as needed for pain along with acetaminophen. Continue docusate to prevent constipation along with milk of magnesia. She is on apixaban for DVT prophylaxis. 2. Acute blood loss anemia due to prior use of Eliquis as well as orthopedic surgery status post 2 units of packed red blood cells with appropriate rise. Continue to monitor hemoglobin. 3. Weakness likely because of intravenous Lasix that she received during blood transfusion. After I gave back intravenous fluid she is feeling much better. I will follow up with kidney function tomorrow to make sure her MATTI has resolved. 4. Others, continue home carvedilol for essential hypertension and hold lisinopril, continue Eliquis for her history of chronic atrial fibrillation and bifascicular block. She is not in rapid ventricular rate at the moment . 5. Disposition. Most likely patient would have a rehab bed available on February 25 at which point she would be discharged. Plan of care discussed with her. All questions have been answered. cc: Otto Rivers MD
[2019-02-24] MEDS ORDERED: PRAVACHOL PO SCH (21:00)
[2019-02-24] MEDS: COLACE PO SCH (22:08)
[2019-02-25] MEDS: HUMALOG SUBQ SCH ×2 (06:53→15:08)
[2019-02-25] MEDS: TYLENOL PO SCH ×2 (06:53→11:17)
[2019-02-25 06:56] LABS: CALCIUM 8.2 mg/dL (8.8-10.2); POTASSIUM 4.6 mmol/L (3.5-5.1)
[2019-02-25 06:59] LABS: HEMATOCRIT 28.3 % (37.0-47.0); HEMOGLOBIN 8.9 g/dL (12.0-16.0); MCH 27.5 PG (27-31); MCHC 31.4 g/dL (33-37); MCV 87.3 FL (81-99); MPV 10.8 FL (7.4-10.4); RBC 3.24 XMIL (4.2-5.4); RDW 15.6 % (11.5-14.5); WBC 5.86 X1000 (4.8-10.8)
[2019-02-25] MEDS: FOLTX PO SCH (11:17)
[2019-02-25] MEDS: OXY IR PO PRN ×2 (11:17→15:07)
[2019-02-25] MEDS: COREG PO SCH (11:17)
[2019-02-25] MEDS: PERIDEX MT SCH (11:17)
[2019-02-25] MEDS: FERROUS SULFATE PO SCH (11:17)
[2019-02-25] MEDS: ELIQUIS PO SCH (11:17)
[2019-02-25 13:03] VITALS: BP 117/69
--- NOTE | 2019-02-25 14:27 | DISCHARGE SUMMARY ---
ADMISSION DATE: 02/21/2019 DISCHARGE DATE: FINAL DISCHARGE DIAGNOSES: 1. Status post right long trochanteric fixation nail placement. 2. Hypertension. 3. Diabetes mellitus type 2. 4. Constipation. 5. Anemia of acute blood loss. 6. Chronic atrial fibrillation. CONSULTATIONS: Orthopedic consultation with Dr. Ahn. PROCEDURES: Right long trochanteric fixation nail placement performed on 02/21/2019. HOSPITAL COURSE: Ms. Mirza is an 83-year-old female with a history of chronic atrial fibrillation, hypertension, and diabetes who was brought to the ER on February after suffering a fall. The patient lost her balance while putting on pajamas and landed on her right hip. Upon arrival to the ER, an x-ray of the right femur was done that revealed a displaced intertrochanteric hip fracture. The patient was admitted to the hospitalist service and orthopedic surgery was consulted. The patient was taken to the OR on 02/21/2019 at which time a right trochanteric fixation nail placement was performed. Following the procedure, the patient was noted to be anemic. She did receive some blood. The patient continued to improve clinically. She was seen by physical therapy during the hospitalization. The patient is currently stable for discharge to [facility] for further rehabilitation. The patient was started back on her Eliquis. DISCHARGE MEDICATIONS: 1. Ferrous sulfate 325 mg oral daily. 2. OxyIR 5 mg oral every 3 hours p.r.n. for pain. 3. Colace 200 mg oral at bedtime. 4. MiraLAX 17 g oral daily. 5. Glyburide 2.5 mg oral daily. 6. Lisinopril 20 mg p.o. daily. 7. Glucophage 500 mg oral twice a day. 8. Coreg 3.125 mg oral twice a day. 9. Lasix 20 mg p.o. daily. DISCHARGE DIET: An 1800, ADA diet. ACTIVITY: As tolerated. FOLLOWUP INSTRUCTIONS: The patient will need to follow up with Dr. Ahn on 03/04/2019. cc: Faiza Rivera MD MTDD
--- NOTE | 2019-02-25 15:43 | ORTHOPAEDICS PROGRESS NOTE ---
DATE: 02/25/2019 SUBJECTIVE: Ms. Mirza is an 83-year-old female, who underwent nailing of her right femur this past Sunday for her intertrochanteric hip fracture. She has no complaints. OBJECTIVE: She is a well-developed, well-nourished female. She is alert and oriented, cooperative with exam. She is sitting on the side of the bed. Her wounds are clean, dry, intact without sign of infection. Her leg is soft. Calf is soft with brisk capillary refill. No sign of DVT. ASSESSMENT: Stable right trochanteric femoral nail. PLAN: She is weightbearing as tolerated. I have written her orthopedic rehabilitation orders. She can be discharged to rehab today. I will see her back in the office next Sunday. cc: Jose G Ahn MD
== END 2019-02-25 16:04 | DRG 481 ==
LOC: SUPCPDRO → ED 19:58 → SUATTDRO 02-21 01:38 → 4N 02-21 01:38
PROVIDERS: ATTEND Internal Medicine

== ENCOUNTER 2019-04-15 11:24 | Inpatient (IN) ==
[2019-04-15] MEDS ORDERED: ASPIRIN PO ONE (11:33)
[2019-04-15] MEDS ORDERED: NS 500 ML IV ONE ×3 (11:50→16:46)
--- NOTE | 2019-04-15 11:50 | EKG Report ---
Test Performed on : 04/15/2019 11:43:39 AM Test Reason : chf sob cp Blood Pressure : / mmHG Vent. Rate : 072 BPM Atrial Rate : 090 BPM P-R Int : 000 ms QRS Dur : 118 ms QT Int : 426 ms P-R-T Axes : 000 -44 051 degrees QTc Int : 466 ms Atrial fibrillation. Left axis deviation Right bundle branch block Septal infarct , age undetermined Abnormal ECG When compared with ECG of 21-FEB-2019 07:10, Septal infarct is now present T wave inversion no longer evident in Inferior leads Nonspecific T wave abnormality now evident in Lateral leads Unconfirmed Result
[2019-04-15 12:17] LABS: BASO# 0.02 X1000 (0.0-0.2); BASO% 0.2 % (0.0-0.8); EOS# 0.09 X1000 (0.0-0.7); EOS% 0.8 % (0.0-10.0); IMM GRAN# 0.02 X1000 (0.0-0.04); IMM GRAN% 0.2 % (0.0-0.5); LYMPH# 2.11 X1000 (1.2-3.4); LYMPH% 19.7 % (20.5-51.1); MCH 28.3 PG (27-31); MCV 94.3 FL (81-99); MONO# 0.82 X1000 (0.11-0.59); MONO% 7.7 % (1.7-9.3); MPV 9.1 FL (7.4-10.4); NEUT# 7.65 X1000 (1.4-6.5); NEUT% 71.4 % (42.2-75.2); PLT 259 X1000 (130-400); RBC 1.59 XMIL (4.2-5.4); RDW 15.7 % (11.5-14.5); WBC 10.71 X1000 (4.8-10.8)
[2019-04-15 12:18] LABS: HEMOGLOBIN 4.5 g/dL (12.0-16.0)
[2019-04-15 12:37] LABS: INR 2.09; PROTIME 24.7 Seconds (11.0-16.0)
[2019-04-15 12:38] LABS: PTT 32.8 Seconds (22.3-41.8)
--- NOTE | 2019-04-15 13:06 | Diag Imaging Result Doc PS360 ---
CHEST-PORTABLE - 04/15/2019 INDICATION: sob chf COMPARISON: 02/20/2019 FINDINGS: Heart size remains borderline enlarged. No infiltrates or edema. Pulmonary vascularity is normal. IMPRESSION: Borderline cardiomegaly. Electronically signed by [place] 04/15/2019 1:03 PM
[2019-04-15 13:21] LABS: AGAP 15; ALBUMIN 3.8 g/dL (3.5-5.0); ALKALINE PHOSPHATASE 82 U/L (32-104); BUN 50 mg/dL (8-22); CALCIUM 9.2 mg/dL (8.8-10.2); CHLORIDE 109 mmol/L (98-107); CK PROFILE 28 U/L (24-173); COSMO 295; CREATININE 1.6 mg/dL (0.5-0.9); ESTIMATED GFR 31; GLUCOSE 106 mg/dL (70-104); GOT 15 U/L (10-30); GPT 7 U/L (10-36); POTASSIUM 5.2 mmol/L (3.5-5.1); SODIUM 141 mmol/L (136-145); TCO2 17 mmol/L (25-35); TOTAL BILIRUBIN < 0.15 mg/dL (0.20-1.00)
[2019-04-15] MEDS ORDERED: PROTONIX IV ONE ×2 (13:24→15:41)
[2019-04-15] MEDS ORDERED: SODIUM CHLORIDE 0.9% INJ ONE ×2 (13:24→15:41)
--- NOTE | 2019-04-15 13:50 | PROVIDER DOCUMENTATION ---
This chart was entered by Cassi Cee Scribe, acting as scribe for Ashlee Ya MD. HPI-Respiratory General - General Chief Complaint: Shortness of Breath Stated Complaint: SOB Time Seen by Provider: 04/15/19 11:33 Source: patient Allergies/Adverse Reactions: Patient Allergies Allergy/AdvReac Type Severity Reaction Status Date / Time adhesive tape Allergy RASH Verified 04/15/19 14:43 Penicillins Allergy ANAPHYLAXIS Verified 03/22/18 18:12 Home Medications: Home Medication List Medication Instructions Recorded Confirmed Last Taken Type Apixaban [Eliquis] 5 mg PO BID 03/29/17 04/15/19 03/29/17 History PRAVAstatin [Pravachol] 10 mg PO DAILY 03/29/17 04/15/19 Unknown History Saxagliptin [Onglyza] 5 mg PO DAILY 03/29/17 04/15/19 03/29/17 History Carvedilol [Coreg] 3.125 mg PO BID 02/20/19 04/15/19 Unknown History Furosemide [Lasix] 20 mg PO DAILY 02/20/19 04/15/19 Unknown History Glyburide 2.5 mg PO DAILY 02/20/19 04/15/19 Unknown History LISINOpril [Prinivil] 20 mg PO DAILY 02/20/19 04/15/19 Unknown History Metformin [Glucophage] 500 mg PO BID CC 02/20/19 04/15/19 Unknown History Ferrous Sulfate 325 mg PO WBREAKFAST tab 02/21/19 04/15/19 Unknown Rx Potassium Chloride 10 meq PO DAILY 04/15/19 04/15/19 Unknown History - History of Present Illness-Resp Nature of Presenting Problem: Patient is a 83 year old female who presents with shortness of breath. States having a right total hip replacement [address] Ahn and shortness of breath has gradually worsened. Denies pain. Quality of Pain: reports: none Severity in ED: reports: mild Onset/Duration: reports: gradual Timing: reports: still present, getting worse Modifying Factors: worse with: exertion Associated Symptoms: reports: shortness of breath Similar Symptoms Previously?: Yes Recently seen or treated by another doctor?: Yes Review of Systems - Adult - REVIEW OF SYSTEMS - ADULT Constitutional: reports: no symptoms reported Eyes: reports: no symptoms reported Ears, Nose, Mouth & Throat: reports: no symptoms reported Cardiovascular: reports: no symptoms reported Respiratory: reports: see HPI, shortness of breath. denies: cough, wheezing Gastrointestinal: reports: no symptoms reported Genitourinary: reports: no symptoms reported Musculoskeletal: reports: no symptoms reported Integumentary: reports: no symptoms reported Neurological: reports: no symptoms reported Psychiatric: reports: no symptoms reported Endocrine: reports: no symptoms reported Hematologic/Lymphatic: reports: no symptoms reported Allergic/Immunologic: reports: no symptoms reported All Other Systems: Reviewed and Negative Past History - Adult - PAST MEDICAL HISTORY-ADULT Review of Records: reports: Old Records Reviewed, Nursing Assessment Review, Medications Reviewed, Social history reviewed & non-contributory. Major Childhood Illnesses: reports: denies history Cardiovascular: reports: A-Fib, CHF, HTN Respiratory: reports: denies history Gastrointestinal: reports: denies history Obstetrical/Gynecological: reports: denies history Genitourinary: reports: denies history Musculoskeletal: reports: denies history Neurological: reports: denies history Endocrine/Immune: reports: Diabetes Other Conditions: reports: denies history - PRIOR SURGERIES/PROCEDURES Surgical/Procedure History: reports: appendectomy, orthopedic (extremity) - IMMUNIZATION STATUS Childhood Immunizations: See Nurse Assessment Flu Vaccine: See Nurse Assessment - FAMILY HISTORY Family History: reviewed, not pertinent - SOCIAL HISTORY Smoking: denies Substance Use: denies Physical Exam-General - PHYSICAL EXAM-ADULT Initial Vital Signs Reviewed: Yes - CONSTITUTIONAL General Appearance: alert, no apparent distress, other (drowsy). negative: slow to respond, obtunded - HEAD, EARS, NOSE, MOUTH & THROAT HENMT: normocephalic/atraumatic, moist mucous membranes. negative: angioedema - RESPIRATORY Respiratory: chest non-tender, lungs clear, normal breath sounds. negative: crackles, rhonchi - CARDIOVASCULAR Cardiovascular: normal peripheral pulses, irregularly irregular. negative: tachycardia - GASTROINTESTINAL (ABDOMEN) Abdominal Exam: normal bowel sounds, non tender, soft. negative: distended, rigid - GENITOURINARY Rectal Exam: black stool, hemorrhoids. negative: mass, tenderness - MUSCULOSKELETAL Extremity: normal inspection. negative: erythema, swelling - SKIN Integumentary: normal color, normal turgor, warm/dry. negative: diaphoresis, pallor - NEUROLOGIC Neurologic: grossly normal. negative: aphasia, facial droop, sensory deficit - PSYCHIATRIC Psych/Mental Status: oriented x 3, other (drowsy). negative: anxious Progress - PLAN OF CARE/RESULTS Result Diagrams: 04/15/19 12:00 04/15/19 12:00 - EKG 1 Time of EKG reading by physician:: 11:43 EKG Read and Signed by:: Ashlee Ya EKG Interpretation (*Must complete 3 of following elements*): Abnormal Rate: 72 Rhythm: atrial fibrillation [place]: left QRS: RBB Comments: septal infarct, age undetermined - XRAY 1 XRAY Study: Chest Impression: See EMR Report ( CHEST-PORTABLE - 04/15/2019 INDICATION: sob chf COMPARISON: 02/20/2019 FINDINGS: Heart size remains borderline enlarged. No infiltrates or edema. Pulmonary vascularity is normal. IMPRESSION: Borderline cardiomegaly. Electronically signed by [place] 04/15/2019 1:03 PM 04/15/19 1303 Interpreting Physician: Los Olivia MD Dictated Date/Time: 04/15/19 1302 cc: Ashlee Ya MD; Jarek Blank MD) - CONSULTS/PCP/HOSPITALIST Notification #1 *Consult/PCP/Hospitalist*: Dr. Fontanez Time Discussed: 13:05 Reason/Comments: Dr. Ya consulted with Dr. Fontanez about patient. Consult Disposition: Admit Departure - Departure Date of Disposition Decision: 04/15/19 Time of Disposition Decision: 13:49 DIAGNOSIS: GI bleed Qualifiers: GI bleed type/associated pathology: melena Qualified Code(s): K92.1 - Melena Disposition: ADMITTED INPATIENT 09 Certified Medical Emergency: Emergent Condition: Stable - Critical Care Note This patient required my direct & personal management of CC.: No Attestation - Physician/ VALERI Attestation Patient care was provided by Advanced Practice Provider:: No The physician spent face to face time with patient:: Yes Advanced Practice Provider documentation review:: Supervising physician onsite and consulted in the evaluation and care of this patient. The physician did have a face to face encounter with the patient. This chart was documented by the indicated scribe, (Cassi Cee Scribe) and accurately reflects the services I performed and decisions made by me, Ashlee Ya MD, as attested by the provider's signature.
[2019-04-15] MEDS ORDERED: PROTONIX 80 MG in NS 80 ML IV ONE (14:00)
[2019-04-15 16:54] LABS: IRON SATURATION 4 %; TIBC 251 ug/dL; TOTAL IRON 10 ug/dL (49-151); UNBOUND IRON 241 ug/dL (112-346)
[2019-04-15] MEDS ORDERED: ZOFRAN IV PRN (17:33)
[2019-04-15] MEDS: PROTONIX 80 MG in NS 80 ML IV SCH (18:15)
[2019-04-15] MEDS ORDERED: NS 1,000 ML ONE (19:57)
[2019-04-15] MEDS: TYLENOL PO PRN (20:12)
[2019-04-15 21:29] LABS: HEMATOCRIT 20.3 % (37.0-47.0); HEMOGLOBIN 6.6 g/dL (12.0-16.0)
[2019-04-16] MEDS: PROTONIX 80 MG in NS 80 ML IV SCH ×2 (03:26→13:55)
[2019-04-16 06:35] LABS: INR 1.58; PROTIME 19.2 Seconds (11.0-16.0)
[2019-04-16 06:38] LABS: BASO# 0.01 X1000 (0.0-0.2); BASO% 0.1 % (0.0-0.8); EOS# 0.12 X1000 (0.0-0.7); EOS% 1.6 % (0.0-10.0); HEMATOCRIT 19.3 % (37.0-47.0); IMM GRAN# 0.02 X1000 (0.0-0.04); IMM GRAN% 0.3 % (0.0-0.5); LYMPH# 1.65 X1000 (1.2-3.4); LYMPH% 21.6 % (20.5-51.1); MCH 27.3 PG (27-31); MCHC 31.1 g/dL (33-37); MCV 87.7 FL (81-99); MONO# 0.91 X1000 (0.11-0.59); MONO% 11.9 % (1.7-9.3); NEUT# 4.92 X1000 (1.4-6.5); NEUT% 64.5 % (42.2-75.2); PLT 186 X1000 (130-400); RDW 17.3 % (11.5-14.5); WBC 7.63 X1000 (4.8-10.8)
[2019-04-16 07:00] LABS: ALB/GLOB RATIO 1.4; ALBUMIN 2.9 g/dL (3.5-5.0); CALCIUM 8.6 mg/dL (8.8-10.2); CREATININE 1.4 mg/dL (0.5-0.9); POTASSIUM 4.8 mmol/L (3.5-5.1); TOTAL BILIRUBIN 0.58 mg/dL (0.20-1.00)
[2019-04-16] MEDS ORDERED: NS 500 ML IV ONE (08:52)
[2019-04-16] MEDS ORDERED: BLISTEX MEDICATED BERRY LIP BALM TOP PRN (09:19)
[2019-04-16] MEDS: VITAMIN K 10 MG in NS 50 ML IV SCH (09:21)
--- NOTE | 2019-04-16 10:57 | PROGRESS NOTE ---
DATE: 04/16/2019 SUBJECTIVE: This morning, Ms. Mirza refers to be doing a little better. She got admitted yesterday because of generalized weakness and fatigue associated with dark stools for the past 4 days. She came to the emergency room, was found to be remarkably anemic with a hemoglobin of 4.5. Currently, she has been transfused 2 units of PRBCs and 1 FFP. Her blood count is up to 6.0. She refers to be doing a lot better anyway. Ms. Mirza has a history of atrial fibrillation and some coronary artery disease. She has been on Eliquis for a long period of time for stroke prophylaxis. When she came in, her initial PT was 24.7 and INR was 2.08. OBJECTIVE: Current Vital Signs: Blood pressure is 105/57. Of note, she was quite hypotensive as well when she came in, with a blood pressure of 94/51. Pulse of 60, respirations 15, temperature is 98.2 degrees, the patient was saturating 93%. General: Ms. Mirza is an 83-year-old female. She was in bed. She was not in any cardiopulmonary distress. HEENT: Mucosa is slightly pale. Anicteric. Acyanotic. Neck: Supple. Chest: Clear to auscultation. There were no crepitations, no rhonchi. Cardiovascular: Regular rate and rhythm. Abdomen: Soft, nontender. Bowel sounds present. Extremities: No pedal edema. LANDSCAPE CONTRACTOR: The patient was awake, alert, and oriented. LABORATORY DATA: WBC is 7.63, hemoglobin is 6.0, platelet count of 183,000. Chemistry is also reviewed. Creatinine is down to 1.4, BUN is 42. Rest of chemistry is unremarkable. IMAGING STUDIES: On admission, a chest x-ray did show a borderline cardiomegaly. ASSESSMENT: 1. Hypovolemic shock on presentation, improved. 2. Symptomatic anemia due to acute blood loss. 3. Gastrointestinal bleed, most likely precipitated by anticoagulation. The patient is pending endoscopies to rule out any organic gastrointestinal pathology. 4. Severe iron deficiency secondary to chronic gastrointestinal blood loss. 5. History of atrial fibrillation, currently rate controlled. 6. History of anticoagulation therapy with Eliquis. The patient's INR was supratherapeutic. She has been given fresh frozen plasma and vitamin K. 7. Diabetes mellitus, controlled. 8. Hypertension, stable now. 9. Recent left intertrochanteric hip fracture, status post intervention about 2 months ago. In general, I think Ms. Mirza is doing fairly okay. Her blood count is slightly improved. We are going to give her 2 more units since it is still 6. We will also continue with gentle hydration. Continue with proton pump inhibitor. Anticoagulation has been withheld, and will be waiting on Gastroenterology's further recommendations. cc: Lester Coley MD
[2019-04-16] MEDS: TYLENOL PO PRN ×2 (11:04→21:33)
--- NOTE | 2019-04-16 14:33 | HISTORY AND PHYSICAL ---
CHIEF COMPLAINT: Weakness. HISTORY: She is an 83-year-old female who recently had a right hip fracture. She was discharged on the after hip fracture repair per Dr. Ahn. She has had a low blood count before when she was discharged on the though it was 8.9 and 28. It is not clear that she went home on iron. However, she does take anticoagulation in the form of Eliquis for atrial fibrillation. I also think she is not on any anti-platelet medications as she was not taking, Eliquis is not listed, but she says she has been taking it. She is usually on it. It is not clear that she was on anti-platelet therapy. She was discharged on iron. However, she has progressively gotten worse. Over the last 24 hours, she developed dark black stools. Apparently, that is a change, but again she is on iron. She is extremely pale, weak, short of breath, and really unable to stand. When she first came in, her hemoglobin was 4.5 and 15 with unclear source, but she had a black tarry stool while she was in the ER. She is admitted for acute GI bleed. She does not take any NSAIDs only Tylenol. No previous history of GI bleed, peptic ulcers or anything of that sort. PAST MEDICAL HISTORY: 1. She has hyperlipidemia. 2. Reported CHF. 3. Type 2 diabetes. 4. Dyslipidemia. 5. Hypertension. PAST SURGICAL HISTORY: She has had an appendectomy. She has had a left leg repair after fracture. She had a recent right hip fracture. SOCIAL HISTORY: . No tobacco or alcohol. She does have family that is close by. FAMILY HISTORY: Father with prostate cancer. Mother with diabetes. Sister with diabetes. ALLERGIES: Penicillin and adhesive tape. MEDICATIONS: She is on Coreg 3.125 b.i.d., Eliquis 5 b.i.d. Glucophage 500 b.i.d., glyburide 2.5 daily, Lasix 20 daily, Onglyza 5 daily, Klor-Con 10 daily, Pravachol 10 daily, Prinivil 20 daily, and ferrous sulfate 325 daily. REVIEW OF SYSTEMS: Otherwise, negative times a 10 point review of systems. PHYSICAL EXAMINATION: VITAL SIGNS: When she was seen initially, her blood pressure was 116/62, heart rate of 87, respiratory 16, and temperature 98.1 degrees. Her blood pressure was as low as 95/50. GENERAL: She is a thin female in no acute distress who came in for evaluation for anemia and likely acute bleed. HEENT: Eye exam: Pupils equal, round, and reactive to light. Extraocular movements were intact. Sclerae anicteric. She did have pale conjunctivae. NECK: Supple. EARS NOSE AND THROAT: Oropharynx was moist and clear. CARDIOVASCULAR: Tachy. PULMONARY: Bilateral breath sounds clear to auscultation. GI: Soft, nontender, nondistended. Bowel sounds are positive. NEUROLOGIC: Nonfocal. Cranial nerves 2-12 were grossly intact. MUSCULOSKELETAL: 4 to 5 in all 4 extremities. SKIN: Noted for pallor, but no other significant lesions. LABORATORY DATA: Again, when she came in, hemoglobin and hematocrit was 4.5 and 15, white count of 10. Her BUN and creatinine were 50 and 1.6 with potassium of 5.2. I believe her creatinine is pretty normal at baseline. She was grossly heme-positive. Her INR was 2.09. She is on Eliquis. DIAGNOSTIC: I do not think she had any imaging. ASSESSMENT: An 83-year-old female presenting with symptomatic anemia, status post a recent right hip surgery on anticoagulation with direct oral anticoagulants and most likely a GI bleed. 1. Gastrointestinal bleed, possibly upper in the setting of known anemia. We will go ahead and give her 2 units of blood. She will likely need further transfusion. We will repeat her hemoglobin and hematocrit, and follow. I am going to start Protonix. Her INR is elevated, but she is on Eliquis and apixaban so not really keen on negative agents so we will give 1 unit of FFP to try to thicken the blood, especially anticipated endoscopy. We will consult GI for evaluation. 2. Recent right hip surgery that seems stable. We will consult Orthopedics because she was a recent surgery. 3. Symptomatic anemia. We will check her iron stores, although she has been on iron supplementation and follow. Most likely, again this is an acute bleed, but she may need further iron supplementation. 4. Diabetes. We will follow her blood sugars and monitor closely. At this point, she is not eating very much. We will need to make sure that she does not. 5. In any case, she will be stabilized and sent to [facility] for evaluation by GI and Orthopedics. Appreciate consultation. cc: Yevgeniy Fontanez MD
--- NOTE | 2019-04-16 17:07 | ORTHOPAEDICS CONSULTATION ---
DATE: 04/16/2019 CHIEF COMPLAINT: Shortness of breath. She has had a recent right hip surgery by Dr. Ahn. HISTORY OF PRESENT ILLNESS: The patient is an 83-year-old female who presented to the emergency department at [facility] for shortness of breath. She states she had a right hip replacement about [address] Ahn. She has been steadily declining ever since then, and complaining of dark stools. Orthopedics was consulted to come see the patient due to the recent surgery. PAST MEDICAL HISTORY: The patient has history of atrial fibrillation, congestive heart failure, and hypertension. ALLERGIES: The patient is allergic to adhesive tape and penicillins. SOCIAL HISTORY: Patient does not smoke or any type of alcohol abuse. PAST SURGICAL HISTORY: The patient has had a surgery on her right hip by Dr. Ahn about 2 months ago. LABORATORY: White blood cells 7.63, hemoglobin 6.0, hematocrit 19.3, and platelets 186,000. INR is 1.58. Sodium 138, potassium 4.8, chloride 108, BUN 42, creatinine 1.4, glucose 52, and calcium 8.6. ProBNP was 2137. Recent chest x-ray shows borderline cardiomegaly, and no evidence of infiltrates. PHYSICAL EXAM: General. The patient is sitting in the bed comfortably. HEENT: Head is atraumatic, normocephalic. Eyes equal round and reactive. Neck is supple. Respiratory. There is equal chest expansion rise and fall. Abdomen: is somewhat tender to left upper quadrant. Extremities. Theres good range of motion to bilateral lower extremities. Theres good pedal pulses. There is good sensation. There is no tenderness or redness or signs of infection. Vital signs are stable. MEDICATIONS: Patient reports takin. Eliquis 5 mg b.i.d. 2. Pravastatin 10 mg daily. 3. Onglyza 5 mg daily. 4. Glyburide 2.5 mg daily. 5. Lisinopril 20 mg daily. 6. Metformin 500 mg b.i.d. 7. Carvedilol 3.125 mg b.i.d. 8. Lasix 20 mg daily. 9. She also reports taking iron sulfate 325 mg daily and potassium chloride 10 mEq daily. ASSESSMENT: GI bleed, recent hip surgery. PLAN: Ms. Mirza is doing great in concern to her hip at this time. There is no evidence of any problems or bleeding with that at this time. GI has been consulted, and taking care of the patient while she is in the hospital as well as hospitalist. This patient has been released from our office from her hip surgery, and can follow up as needed with any other orthopedic concerns. We will be available while she is in the hospital as needed. Dictated by ZAK Ramirez for Jose G Ahn MD cc: ZAK Ramirez MD [facility]
--- NOTE | 2019-04-16 18:37 | GASTROENTEROLOGY CONSULTATION ---
DATE: 04/16/2019 REASON FOR CONSULT: GI bleed. HISTORY OF PRESENT ILLNESS: Ms. Mirza is an 83-year-old female who went to [facility] yesterday morning to [facility] complaining of having black tarry stools which has been going on for the last 4 days onwards. The patient is currently on Eliquis for her A-fib for last 2 years. She had a heart attack last year. The patient also had right hip surgery done by Dr. Ahn on 02/21/19 and was discharged on 02/25/19. She has denied any fever, chills, nausea, vomiting, but did complained of having shortness of breath and feeling weak. Her H & H on admission were 4.5 and 15.0. Today it is 6.0 and 19.0. She has been transfused 2 units of packed red blood cell and 1 unit of plasma. Her PT/INR on admission was 24.7/2.09 and now it is 19.2/1.58. Patient mentioned that she has never had any GI bleed in the past. PAST MEDICAL HISTORY: Diabetes, CHF, atrial fibrillation, coronary artery disease, hypertension. PAST SURGICAL HISTORY: Right hip surgery, appendectomy, and left knee surgery. ALLERGIES: Penicillin. SOCIAL HISTORY: The patient is a . She has 5 kids. Denied any alcohol, smoking or illicit drug use. FAMILY HISTORY: Her dad had prostate cancer. Mom had diabetes. Son had colon cancer at the age of 62. REVIEW OF SYSTEM: As per HPI. Otherwise, 12 point review of system is negative. HOME MEDICATIONS: The patient's home medications are lisinopril 20 mg, Eliquis 2.5 mg, Coreg 3.125 mg, glyburide 2.5 mg, metformin 500 mg, Onglyza 5 mg, pravastatin 10 mg, potassium 10 mEq, furosemide 20 mg, and she takes vitamin B complex with folic acid 1 tablet. PHYSICAL EXAMINATION: Vital Signs: Temperature 98.2 degrees, pulse 78, respirations 18, blood pressure 119/77, oxygen saturation 91%. She is on 2 L nasal cannula. The patient's weight is 145 pounds, BMI is 24.2 kg/m2. General: She is alert, oriented x3. Hard of hearing and in no acute distress. HEENT: Pale conjunctivae. No icterus. PERRL. Neck: Supple. Lungs: Clear to auscultation in the anterior estrella. Cardiovascular: Regular rate and rhythm. Abdomen: Soft, nontender, nondistended. Active bowel sounds heard in all 4 quadrants. Extremities: No clubbing. No cyanosis. No edema. Pedal pulses 2+ present bilaterally, surgical scar on the right hip. Neurological: Alert and oriented x3. Nonfocal. Cranial nerves 2-12 grossly intact. IMAGING: Chest x-ray showed borderline cardiomegaly. ASSESSMENT: 1. Gastrointestinal bleed. 2. Diabetes. 3. Congestive heart failure. 4. Hypertension. 5. Atrial fibrillation. 6. Coronary artery disease. 7. Heart attack. PLAN: Our plan is to do an EGD tomorrow to find out the cause of her bleeding. She is currently receiving IV Protonix 80 mg at 10 mL/h. She is also receiving vitamin K 10 mg at 50 mL/h. The patient has denied nausea, vomiting, and abdominal pain. She has so far received 2 units of blood and 1 unit of plasma. She has orders for another 2 units of packed red blood cells to be transfused. The patient is currently on a clear liquid diet and NPO past midnight for the procedure. Her anticoagulants are on hold. We will continue to monitor the patient's CBCs and BMPs and follow the plan of care per [facility]. Discussed the risks, benefits and alternatives of the procedure, patient and family acknowledges understanding of the plan of care. Further plan of care will be based on the EGD findings. This plan was discussed with Dr. Bell. Thank you for your consult and please call us for any further questions or concerns. Dictated by ZAK Islas for Elmer Bell MD Physician Attestation I have seen and examined the patient. I have discussed and reviewed the the note by Christina CRESPO and agree with findings and plan as documented. In brief, Ms. Mirza is a 83 year old woman with pAFIB on Eliquis who presents with 3 days of melena and acute blood loss anemia. +ARTHUR. VSS. Abdomen benign. No prior EGD or colonoscopy. On PPI IV BID. Clear liquid diet. Hold blood thinners. Trend H/H, Transfuse prn goal hgb 7-8. Plan for EGD with Dr. Shah . MTDD
[2019-04-16 21:34] LABS: BASO# 0.02 X1000 (0.0-0.2); BASO% 0.2 % (0.0-0.8); EOS# 0.16 X1000 (0.0-0.7); EOS% 1.8 % (0.0-10.0); HEMATOCRIT 27.9 % (37.0-47.0); HEMOGLOBIN 8.9 g/dL (12.0-16.0); IMM GRAN# 0.02 X1000 (0.0-0.04); IMM GRAN% 0.2 % (0.0-0.5); LYMPH# 2.17 X1000 (1.2-3.4); LYMPH% 24.5 % (20.5-51.1); MCH 28.2 PG (27-31); MCHC 31.9 g/dL (33-37); MCV 88.3 FL (81-99); MONO# 0.95 X1000 (0.11-0.59); MONO% 10.7 % (1.7-9.3); MPV 8.9 FL (7.4-10.4); NEUT# 5.53 X1000 (1.4-6.5); NEUT% 62.6 % (42.2-75.2); PLT 177 X1000 (130-400); RBC 3.16 XMIL (4.2-5.4); RDW 15.8 % (11.5-14.5); WBC 8.85 X1000 (4.8-10.8)
[2019-04-16] MEDS: PROTONIX IV SCH (21:54)
[2019-04-17 06:08] LABS: BASO# 0.01 X1000 (0.0-0.2); BASO% 0.1 % (0.0-0.8); EOS# 0.18 X1000 (0.0-0.7); EOS% 2.3 % (0.0-10.0); HEMOGLOBIN 8.8 g/dL (12.0-16.0); LYMPH# 2.26 X1000 (1.2-3.4); LYMPH% 28.6 % (20.5-51.1); MCH 27.9 PG (27-31); MCHC 31.4 g/dL (33-37); MCV 88.9 FL (81-99); MONO# 0.94 X1000 (0.11-0.59); MONO% 11.9 % (1.7-9.3); NEUT% 57.1 % (42.2-75.2); PLT 163 X1000 (130-400); RBC 3.15 XMIL (4.2-5.4); RDW 16.2 % (11.5-14.5); WBC 7.89 X1000 (4.8-10.8)
[2019-04-17 06:31] LABS: CALCIUM 8.7 mg/dL (8.8-10.2); POTASSIUM 4.3 mmol/L (3.5-5.1)
[2019-04-17] MEDS ORDERED: DIPRIVAN 1% ONE (08:47)
[2019-04-17] MEDS ORDERED: XYLOCAINE-MPF 2% ONE (08:48)
[2019-04-17] MEDS ORDERED: FENTANYL ONE (08:48)
[2019-04-17] MEDS ORDERED: QUELICIN (DOSE) ONE (08:49)
--- NOTE | 2019-04-17 09:20 | ENDOSCOPY OPERATIVE NOTE ---
[facility] ENDOSCOPY OPERATIVE NOTE , PATIENT: Jaky Mirza ADMISSION DATE: MR#: [id number] : 1935 EGD PROCEDURE REPORT PROCEDURE DATE: 04/17/2019 SURGEON: Robert Shah MD STATUS: inpatient TRAIN STARTER: Betina Russell and Eve Maldonado PREOPERATIVE DIAGNOSIS: The patient is a 83 yr old female here for an EGD due to Anemia requiring 4 units PRBcs, Melena, GI Bleed, Takes Eliquis held for 1 day. PROCEDURE PERFORMED: EGD, diagnostic MEDICATIONS: Per Anesthesia TOPICAL ANESTHETIC: none CONSENT: The patient understands the risks and benefits of the procedure and understands that these r isks include, but are not limited to: sedation, allergic reaction, infection, perforation and/or bleeding. Alternative means of evaluation and treatment include, among others: physical exam, x-rays, and/or surgical intervention. The patient elects to proceed with this endoscopic procedure. HISORY AND PHYSICAL: 04/17/2019 DESCRIPTION OF PROCEDURE: During intra-op preparation period all mechanical and medical equipment was checked for proper function. Hand hygiene and appropriate measures for infection prevention was taken. After the risks, benefits and alternatives of the procedure were thoroughly explained, Informed consent was verified, confirmed and timeout was successfully executed by the treatment team. The patient was anesthetized with topical anesthesia and the AL38-s12 ([id number]) endoscope was introduced through the mouth and advanced to the second portion of the duoden um. Retroflexion was performed in the stomach and revealed no abnormalities. The gastroscope was then slowly withdraw n and removed. ESOPHAGUS: The mucosa of the esophagus appeared normal. STOMACH: Erosive gastritis in the body and antrum was noted; No ulcers; No active bleeding. DUODENUM: The duodenal mucosa showed no abnormalities in the duodenal bulb, 1st part duodenum, and 2n d part duodenum. SPECIMENS REMOVED: No ADVERSE EVENTS: There were no complications. POSTOPERATIVE DIAGNOSIS: 1. The mucosa of the esophagus appeared normal 2. Erosive gastritis in the body and antrum was noted; No ulcers; No active bleeding 3. The duodenal mucosa showed no abnormalities in the duodenal bulb, 1st part duodenum, and 2nd part duodenum RECOMMENDATIONS: Colonoscopy in AM with Dr Bell. Continue PPI QD and Transfuse as needed. REPEAT EXAM: Robert Shah MD eSigned: Robert Shah MD 04/17/2019 9:19 AM cc: PATIENT NAME: Raul Mirzabassam Green MR#: [id number]
[2019-04-17] MEDS: PROTONIX IV SCH ×2 (10:17→20:06)
[2019-04-17] MEDS: SODIUM CHLORIDE 0.9% INJ SCH ×2 (10:17→20:06)
[2019-04-17] MEDS: VITAMIN K 10 MG in NS 50 ML IV SCH (10:18)
--- NOTE | 2019-04-17 11:33 | PROGRESS NOTE ---
DATE: 04/17/2019 SUBJECTIVE: This morning Ms. Mirza refers to be doing a little better. She was slightly drowsy after the EGD. Otherwise, she denies any dark stool. OBJECTIVE: Vital signs: Blood pressure is 120/73, pulse of 60, respiration is 16, temperature is 98.3 degrees. Patient was saturating 99%. General: Ms. Mirza is an 83-year-old female. She was in bed no distress. HEENT: Mucosa is pink and moist. Anicteric. Acyanotic. Neck: Supple. Chest: Clear to auscultation. Cardiovascular: Regular rate and rhythm. Abdomen: Soft, nontender. Bowel sounds present. Extremities: No pedal edema. Central nervous system: Patient was slightly drowsy but was easily arousable and will sustain rational conversation. LABORATORY DATA: WBC is 7.89, hemoglobin is 8.8, platelet count of 163,000. Chemistry is also reviewed. Creatinine is down to 1.0. CURRENT MEDICATIONS: Have also been reviewed. ASSESSMENT: 1. Hypovolemic shock on presentation secondary to acute blood loss. 2. Symptomatic anemia due to acute blood loss. Patient is status post 4 packed red blood cells transfusion. Hemoglobin and hematocrit is stable. 3. Gastrointestinal bleed, most likely precipitated by Eliquis anticoagulation. The patient is status post esophagogastroduodenoscopy this morning. The report seems to suggest only erosive gastritis in the body and antrum, but no ulcers and both esophagus and duodenal mucosa are normal. Patient is pending a colonoscopy tomorrow. 4. History of atrial fibrillation, currently rate controlled. 5. Diabetes and hypertension, controlled. 6. Recent left intertrochanteric hip fracture status post intervention about 2 months ago, noted. 7. Acute on chronic kidney failure. Creatinine is down to 1.0. DISPOSITION: In general Ms. Mirza is doing well. She is status post EGD which only found gastritis in the body and antrum. Not any other pathology to explain her bleeding. She is pending a colonoscopy tomorrow. Hemoglobin and hematocrit remain stable. She is currently on PPI and anticoagulation has been withheld. The patient was slightly coagulopathic with a presenting INR of 2.09. She has been given vitamin K as well by GI. cc: Lester Coley MD
[2019-04-17] MEDS ORDERED: GOLYTELY PO ONE ×2 (12:00→14:00)
[2019-04-17] MEDS: TYLENOL PO PRN (22:57)
[2019-04-18 06:01] LABS: HEMATOCRIT 25.2 % (37.0-47.0); HEMOGLOBIN 8.1 g/dL (12.0-16.0); MCH 29.3 PG (27-31); MCHC 32.1 g/dL (33-37); MCV 91.3 FL (81-99); MPV 9.2 FL (7.4-10.4); RBC 2.76 XMIL (4.2-5.4); RDW 15.8 % (11.5-14.5); WBC 8.87 X1000 (4.8-10.8)
[2019-04-18 06:28] LABS: AGAP 11; ALBUMIN 2.9 g/dL (3.5-5.0); BUN 13 mg/dL (8-22); CALCIUM 8.4 mg/dL (8.8-10.2); CHLORIDE 105 mmol/L (98-107); COSMO 277; CREATININE 0.8 mg/dL (0.5-0.9); ESTIMATED GFR > 60; GLUCOSE 112 mg/dL (70-104); PHOSPHORUS 2.3 mg/dL (2.7-4.5); POTASSIUM 3.9 mmol/L (3.5-5.1); SODIUM 138 mmol/L (136-145); TCO2 22 mmol/L (25-35)
[2019-04-18] MEDS: SODIUM CHLORIDE 0.9% INJ SCH ×2 (08:35→20:00)
[2019-04-18] MEDS: PROTONIX IV SCH ×2 (08:35→20:00)
[2019-04-18] MEDS ORDERED: DIPRIVAN 1% ONE (08:52)
[2019-04-18] MEDS ORDERED: XYLOCAINE-MPF 2% ONE (08:52)
--- NOTE | 2019-04-18 09:48 | ENDOSCOPY OPERATIVE NOTE ---
[facility] ENDOSCOPY OPERATIVE NOTE , PATIENT: Jaky Mirza ADM DATE: 04/18/2019 MR #: [id number] : 1935 COLONOSCOPY PROCEDURE REPORT PROCEDURE DATE: 04/18/2019 SURGEON: Elmer Bell MD STATUS: inpatient [employer]ISHER [employer] DIAMOND DIES: PREOPERATIVE DIAGNOSIS: The patient is a 83 yr old female here for a colonoscopy due to hematochezia and anemia, non-specific. PROCEDURE PERFORMED: Colonoscopy, diagnostic MEDICATIONS: Per Anesthesia PREP TYPE: GoLytely
[2019-04-18 11:31] LABS: HEMATOCRIT 27.8 % (37.0-47.0); HEMOGLOBIN 8.9 g/dL (12.0-16.0)
[2019-04-18] MEDS ORDERED: VENOFER 200 MG in NS 100 ML IV ONE (13:00)
[2019-04-18] MEDS: VITAMIN K 10 MG in NS 50 ML IV SCH (15:38)
--- NOTE | 2019-04-18 16:24 | PROGRESS NOTE ---
DATE: 04/18/2019 SUBJECTIVE: This morning Ms. Mirza refers to be doing a whole lot better. Denies any new complaints. She underwent a colonoscopy today. Postoperatively, she has been doing a lot better. She is actually requesting to have more food. OBJECTIVE: Vital signs: Blood pressure 99/83, pulse of 80, respiration is 17 and temperature is 98.3 degrees. General: Ms. Mirza is an 83-year-old elderly female. She is in bed in no distress. HEENT: Mucosa is pink and moist. Anicteric. Acyanotic. Neck: Supple. Chest: Good air entry bilateral. There were no crepitations, no rhonchi. Cardiovascular: Regular rate and rhythm. There were no murmurs, no rubs, no gallops. GI/Abdomen: Soft, nontender. Bowel sounds are present. Extremities: No pedal edema. Distal pulses are present. STAFF TOXICOLOGIST: Patient is awake, alert, oriented. No focal deficit. LABORATORY DATA: This morning, her hemoglobin was 8.1. Repeat is 8.9 with normal MCV. Chemistry is also reviewed, completely normal. Phosphorus was slightly low. The EGD report shows that there was a significant amount of blood found throughout the entire examined colon. There was mild non bleeding diverticulosis noted in the sigmoid colon. Small internal hemorrhoids. Dr. Bell believes that the rectal bleed is likely from a diverticular bleed. ASSESSMENT: 1. Hypovolemic shock secondary to acute blood loss. Patient is status post 4 packed red blood cell transfusion and 1 fresh frozen plasma. Blood pressure is now normalized. Patient has been fluid resuscitated. 2. Symptomatic anemia due to acute blood loss. The patient is status post transfusions. 3. Gastrointestinal bleed. Esophagogastroduodenoscopy was unremarkable. The colonoscopy seems to suggest that this was diverticular in nature, which could be precipitated by the Eliquis anticoagulation. Ms. Mirza hemoglobin and hematocrit is now a lot better. She is still off anticoagulant. We are going to be trending the hemoglobin and hematocrit. 4. History of atrial fibrillation, currently rate controlled. 5. Diabetes mellitus, controlled. 6. Hypertension. 7. Recent left intertrochanteric hip fracture, status post intervention about 2 weeks ago. 8. Acute kidney injury. Creatinine has normalized. 9. Iron deficiency most likely due to anemia of chronic blood loss. The patient is status post blood transfusion. We think his iron has been replenished some. We are going to give her 1 more unit of Venofer to replete it completely. PLAN: So in general, I think Ms. Mirza is doing a lot better. She has been started on clear liquids today. We are going to advance her to full liquid diet and advance as tolerated. She is currently on proton pump inhibitor. We plan to continue that. Will follow her hemoglobin and hematocrit. If her H and H continues to trend up or remains stable, I will be able to discharge her tomorrow. cc: Lester Coley MD
[2019-04-18 19:25] LABS: HEMATOCRIT 25.1 % (37.0-47.0); HEMOGLOBIN 7.8 g/dL (12.0-16.0)
[2019-04-18] MEDS: TYLENOL PO PRN (22:33)
[2019-04-19 03:29] LABS: HEMATOCRIT 23.3 % (37.0-47.0); HEMOGLOBIN 7.2 g/dL (12.0-16.0)
[2019-04-19] MEDS ORDERED: VENOFER 200 MG in NS 150 ML IV ONE (08:06)
[2019-04-19] MEDS: PROTONIX IV SCH ×2 (08:58→20:06)
[2019-04-19 11:50] LABS: HEMATOCRIT 24.8 % (37.0-47.0); HEMOGLOBIN 7.5 g/dL (12.0-16.0)
--- NOTE | 2019-04-19 14:45 | PROGRESS NOTE ---
DATE: 04/19/2019 SUBJECTIVE: This morning Ms. Mirza refers to be doing well. She says she is walking around. She does not feel any dizziness or any giddiness. CURRENT VITALS: Blood pressure is 129/64, pulse of 80, respirations 16, temperature 98.0 degrees. Ms. Mirza is an 83-year-old elderly female. She is in bed. She is not in any cardiopulmonary distress. Mucosa is pink and moist. Anicteric. Acyanotic.Neck: Neck is supple. Chest: Good air entry bilateral. There was no crepitations, no rhonchi. Cardiovascular: Regular rate and rhythm. No murmurs, no rubs, no gallops. GI: Abdomen was soft, nontender. Bowel sounds present. Extremities: No pedal edema. POLITICAL REPORTER: Patient is awake, alert, and oriented. LABORATORY DATA: The patient's hemoglobin has dropped to 7.2, glucose is 92. ASSESSMENT: 1. Hypovolemic shock on presentation secondary to acute blood loss. Patient is status post 4 PRBC transfusion, 1 FFP. Blood pressure has normalized. Patient did not need any pressors. 2. Symptomatic anemia secondary to acute blood loss. 3. GI bleed. The patient is status post esophagogastroduodenoscopy which was unremarkable. Colonoscopy suggests diverticular bleed. 4. History of atrial fibrillation, currently rate controlled. 5. Diabetes mellitus, controlled. 6. Recent left intertrochanteric hip fracture status post intervention. 7. Acute kidney injury, resolved. 8. 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 The patient was given Venofer yesterday and another dose will be given to her today. Iron has also been replenished through the blood transfusions. PLAN: So in general I think Ms. Mirza is doing well. She denies any dark stools or any hematemesis or coffee-ground emesis. Her blood count, however, continues to decrease. She is getting an infusion of iron this morning. We will repeat her hemoglobin later on today. If it continues to drop below 7, we will transfuse her and we will notify GI about what is going on. If the blood count is going up, we will observe her another day and repeat the blood count in the morning and hopefully get her home if it continues to improve. Ms. Mirza is slightly disappointed because she really wanted to go home, but she does understand that if she is continuing to bleed, then she would prefer to be in the hospital rather than going home. cc: Lester Coley MD
[2019-04-19 20:16] LABS: HEMATOCRIT 24.1 % (37.0-47.0); HEMOGLOBIN 7.6 g/dL (12.0-16.0)
[2019-04-19] MEDS: TYLENOL PO PRN (22:18)
--- NOTE | 2019-04-19 22:40 | GASTROENTEROLOGY PROGRESS NOTE ---
DATE: 04/19/2019 SUBJECTIVE: Patient resting in bed. She is feeling better. She had a small amount of blood in the stools which is likely residual from diverticular bleed. She denies any fevers, rigors, chills. She denies any abdominal pain. OBJECTIVE: Vital signs: Temperature 98 degrees, pulse of 70, respiratory 16, blood pressure 104/52, saturating 98% on room air. Body weight of 146 pounds 2 ounces. BMI 24.3 kg/m2. General: Patient is lying in bed, in no acute distress. HEENT: Positive pallor. No icterus. Pupils equal, reactive to light. Neck: Supple. Abdomen: Soft, nontender, nondistended. No guarding or rebound. Extremities: No cyanosis, clubbing. Neurologic: She is alert, awake, oriented. LABS: Her hemoglobin and hematocrit is 7.5 and 24.8. Blood glucose 131 today. IMPRESSION: 1. Anemia. 2. Gastrointestinal bleed. 3. Diverticulosis of the colon. 4. Hemorrhoids. 5. Normal terminal ileum noted on colonoscopy. 6. Significant amount of blood was noted throughout the entire examined colon. According to colonoscopy report, her rectal bleeding is likely diverticular bleeding. RECOMMENDATIONS: 1. We will keep her on a liquid diet. We will watch her hemoglobin and hematocrit and transfuse as needed to keep hemoglobin between goal of 7 to 8 g/dL. We will hold her anticoagulation for now until hematocrit stabilizes. 2. She has history of atrial fibrillation but currently rate controlled. 3. She has diabetes mellitus and she is getting sliding scale insulin. 4. She had a recent left intertrochanteric hip fracture, status intervention 2 weeks ago. 5. She is getting iron infusion per the primary care team. 6. We will follow along. The above plans were discussed with the patient and all questions answered. Please call us with any further questions. cc: Robert Shah MD
[2019-04-20 03:18] LABS: HEMATOCRIT 22.4 % (37.0-47.0); HEMOGLOBIN 6.8 g/dL (12.0-16.0)
[2019-04-20] MEDS ORDERED: NS 500 ML IV ONE (05:43)
[2019-04-20 06:20] LABS: HEMATOCRIT 21.7 % (37.0-47.0); HEMOGLOBIN 6.5 g/dL (12.0-16.0); MCH 27.9 PG (27-31); MCV 93.1 FL (81-99); MPV 9.3 FL (7.4-10.4); RBC 2.33 XMIL (4.2-5.4); RDW 16.3 % (11.5-14.5); WBC 7.43 X1000 (4.8-10.8)
[2019-04-20] MEDS: PROTONIX IV SCH ×3 (07:58→20:05)
--- NOTE | 2019-04-20 08:27 | PROGRESS NOTE ---
DATE: 04/20/2019 SUBJECTIVE: Today, Ms. Mirza refers to be doing well. She denies any complaints. No vomiting and no black stool. Unfortunately, her hemoglobin continues to be trending down. It was 6.8 early this morning, and a repeat at about 5:00 this morning is 6.5. OBJECTIVE: General: Ms. Mirza is an 83-year-old female. She is in bed. No distress. Vital Signs: Blood pressure is 132/60, pulse of 80, respirations 16, temperature 97.5 degrees. HEENT: Mucosa is pink and moist. Anicteric. Acyanotic. Neck: Supple. Chest: Good air entry bilaterally. There were no crepitations, no rhonchi. Cardiovascular: Regular rate and rhythm. No murmurs, no rubs, no gallops. GI: Abdomen was soft, nontender. Bowel sounds present. Extremities: No pedal edema. BACTERIOLOGIST PHARMACEUTICAL: The patient is awake, alert, and oriented. LABORATORY DATA: WBC is 7.43, hemoglobin is 6.5, platelet count of 160,000. Chemistry is also reviewed. Glucose is 118. ASSESSMENT: 1. Hypovolemic shock on presentation secondary to acute blood loss. The patient is status post 4 packed red blood cells transfusions and 1 fresh frozen plasma. Blood pressures are now normalized. The patient did not need any pressor. 2. Symptomatic anemia secondary to acute blood loss. 3. Gastrointestinal bleed, presumably diverticular in origin. The patient is status post esophagogastroduodenoscopy and colonoscopy. Her blood count continues to be trending down. She is going to get another 2 units of packed red blood cells. We are going to do a nuclear tag scan study tomorrow, and will be pending further recommendations from Gastroenterology. 4. History of atrial fibrillation, currently rate controlled. 5. Diabetes mellitus. 6. Recent left intertrochanteric hip fracture, status post orthopedic intervention. This was about 2 months ago. 7. Acute kidney injury on presentation, resolved. 8. Iron deficiency secondary to chronic gastrointestinal blood loss, replaced. In general, I think Ms. Mirza is doing well. However, her hemoglobin continues to decline. I think she is continuing to be bleeding in the gastrointestinal track. We are going to do red blood cell tag nuclear studies to find out where the bleeding is coming from, and will also be pending further recommendations from Gastroenterology. cc: Lester Coley MD
--- NOTE | 2019-04-20 11:58 | GASTROENTEROLOGY PROGRESS NOTE ---
DATE: 04/20/2019 SUBJECTIVE: The patient is resting in bed as she is getting blood transfusion. She, so far, has a total of 5 units of blood and 1 unit of FFP. She had a bowel movement yesterday, which showed a small amount of blood residue. She denies any nausea or vomiting. She denies any fevers, rigors, or chills. Denies any abdominal pain. OBJECTIVE: Vital Signs: Temperature 98.9 degrees, pulse 77, respiratory rate 18, blood pressure 124/58, saturating 100% room air. Body weight of 143 pounds 3 ounces. BMI 23.8 kg. General: The patient is thinly built, lying in bed in no acute distress. HEENT: Pale conjunctiva. No icterus. Pupils equal, reactive to light. Neck: Supple. Abdomen: Soft, nontender, nondistended. No guarding. Extremities: No cyanosis, clubbing. Neurologic: She is alert, awake, oriented x3. LABORATORY DATA: Hemoglobin and hematocrit are 6.5 and 21.7, white count of 7.43, platelet count of 160,000. Glucose of 134. IMPRESSION AND PLAN: 1. Hypovolemic shock on presentation secondary to acute blood loss secondary to gastrointestinal bleed. 2. Gastrointestinal bleed. 3. Rectal bleeding. 4. Symptomatic anemia. 5. Diverticulosis of the colon, likely the cause of gastrointestinal bleeding. 6. Atrial fibrillation, currently rate controlled. The patient was on Eliquis, which has been withheld. 7. Diabetes mellitus. 8. Recent left intertrochanteric hip fracture, status post orthopedic intervention 2 months ago. 9. Acute kidney injury on presentation, resolved. 10. Hemorrhoids. RECOMMENDATIONS: Will continue on liquid diet. Will continue to watch hemoglobin and hematocrit, and transfuse as needed if the hemoglobin goes below 7 g/dL. She continues to be off her anticoagulation for now. We will continue sliding-scale insulin for diabetes control. She is getting iron infusions per the primary team. We will follow along. The above plans were discussed with the patient, and all questions were answered. Please call us with any further questions. We will also continue PPIs b.i.d. for now. Further recommendations to follow pending hospital course. cc: MD Jarek Rhoades MD MTDD
[2019-04-20 18:58] LABS: HEMATOCRIT 30.1 % (37.0-47.0); HEMOGLOBIN 9.6 g/dL (12.0-16.0)
[2019-04-21 06:26] LABS: BASO# 0.02 X1000 (0.0-0.2); BASO% 0.2 % (0.0-0.8); EOS# 0.15 X1000 (0.0-0.7); EOS% 1.9 % (0.0-10.0); HEMATOCRIT 29.1 % (37.0-47.0); HEMOGLOBIN 9.2 g/dL (12.0-16.0); IMM GRAN# 0.02 X1000 (0.0-0.04); IMM GRAN% 0.2 % (0.0-0.5); LYMPH# 1.87 X1000 (1.2-3.4); LYMPH% 23.3 % (20.5-51.1); MCH 28.5 PG (27-31); MCHC 31.6 g/dL (33-37); MCV 90.1 FL (81-99); MONO# 1.11 X1000 (0.11-0.59); MONO% 13.8 % (1.7-9.3); MPV 9.7 FL (7.4-10.4); NEUT# 4.87 X1000 (1.4-6.5); NEUT% 60.6 % (42.2-75.2); PLT 152 X1000 (130-400); RBC 3.23 XMIL (4.2-5.4); RDW 17.8 % (11.5-14.5); WBC 8.04 X1000 (4.8-10.8)
--- NOTE | 2019-04-21 09:11 | Diag Imaging Result Doc PS360 ---
GI BLEED - 04/21/2019 INDICATION: occult GI bleed TECHNIQUE: Tagged red blood cell scan. 23.4 mCi of labeled red blood cells was used. COMPARISON: None FINDINGS: There is normal localization of the radiotracer. No evidence of GI bleeding. IMPRESSION: Negative exam. Electronically signed by [place] 04/21/2019 9:09 AM
[2019-04-21] MEDS: PROTONIX IV SCH (09:13)
--- NOTE | 2019-04-21 10:35 | GASTROENTEROLOGY PROGRESS NOTE ---
DATE: 04/21/2019 SUBJECTIVE: Ms. Mirza is an 83-year-old female resting in bed, family at the bedside. She 1 bowel movement in yesterday and she said that she had noticed blood in the stools. She has denied any nausea, vomiting, or abdominal pain. OBJECTIVE: Vital Signs: 97.9, pulse 53, respirations 16, blood pressure 148/81 81, oxygen saturation 94% on room air. The patient's weight is 143 pounds. BMI is 24.0 kg/m2. General: She is alert, oriented x3, and in no acute distress. HEENT: Pale conjunctivae, no icterus. PERRL. Neck: Supple. Lungs: Clear to auscultation in the anterior estrella. Cardiovascular: The patient is bradycardic. Abdomen: Soft, nontender, nondistended. Active bowel sounds heard in all 4 quadrants. Extremities: No clubbing, no cyanosis, no edema. Pedal pulses 2+ present bilaterally. Neurologic: Alert oriented x3. LABORATORY DATA: WBC 8.04, RBC 3.23, hemoglobin 9.2, hematocrit is 29.1, platelet count is 152,000. The patient's chemistries are from 04/18: Sodium is 138, potassium 3.9, chloride 105, carbon dioxide 22, anion gap 11, BUN 13, creatinine 0.8. IMPRESSION: GI Bleed Rectal bleeding Anemia Diverticulosis Hemorrhoids Atrial fibrillation Diabetes S/P hip surgery MATTI PLAN: The patient had a colonoscopy done on 04/18 and it showed that she had mild nonbleeding diverticulosis and small internal hemorrhoids. The patient's hemoglobin and hematocrit today is 9.2 and 29.1. The patient has so far received 6 units of packed red blood cells and 1 unit of fresh frozen plasma. Patient is also receiving iron infusion per PCP. Her diabetes is managed by insulin on a sliding scale. She is currently on GI prophylaxis, Protonix 40 mg twice a day for her GI and rectal bleeding. We will continue to monitor patient's CBC and BMP and if her hemoglobin is less than 7 we will transfuse as needed. We will continue to follow the plan of care per PCP. This plan was discussed with Dr. Shah. Please call us for any further questions or concerns. Dictated by ZAK Islas for Robert Shah MD cc: Robert Shah MD I have seen and examined the patient myself. I agree with the above plan of care. I have discussed the above with the patient and family and all questions were answered. Please call us with any further questions. NINI
[2019-04-21 11:54] VITALS: BP 133/71
--- NOTE | 2019-04-21 20:58 | DISCHARGE SUMMARY ---
ADMISSION DATE: 04/15/2019 DISCHARGE DATE: 04/21/2019 DIAGNOSES: 1. Gastrointestinal bleed presumably diverticular in origin. 2. Hypovolemic shock on presentation secondary to acute blood loss, resolved. The patient did not require pressors. 3. Symptomatic anemia secondary to blood loss. 4. History of atrial fibrillation, rate controlled. 5. Diabetes mellitus. 6. Recent left intertrochanteric hip fracture status post orthopedic intervention on 02/21/2019. 7. Acute kidney injury resolved. 8. 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 CONSULTS: 1. Dr. Elmer Bell. 2. Dr. Ahn . DIAGNOSTICS: 1. 04/15/2019 chest x-ray revealed borderline cardiomegaly no infiltrates. 2. Procedures, 04/17/2019 EGD revealed mucosa of the esophagus appeared normal, erosive gastritis in the body and antrum was noted, no ulcers, no active bleeding. Duodenal mucosa showed no abnormalities in the duodenal bulb, 1st part duodenum and 2nd part duodenum. 3. GI bleed scan, tagged red blood cell scan revealed negative exam. 4. 04/18/2019 colonoscopy. Mucosa of the terminal ileum appeared normal. A significant amount of blood was found throughout the entire examined colon. Mild nonbleeding diverticulosis was noted in the sigmoid colon. Small internal hemorrhoids, her rectal bleeding is likely from a diverticular bleed. No obvious lesions, masses . HOSPITAL COURSE: Ms Mirza presented to the emergency room complaining of black tarry stools for 4 days prior to coming to the hospital. She was found to have a hemoglobin and hematocrit of 6.6 and 20.3 for which she has been transfused a total of 6 units of packed cells and 1 of fresh frozen plasma having a hemoglobin of 9.2 and hematocrit 29.1 today prior to discharge. Gastroenterology was consulted. She underwent an EGD and no active bleeding was found. Tagged red blood cell scan was negative. She was in hypovolemic shock on admission. She was given IV fluids along with 4 units of packed cells and 1 of fresh frozen, pressure did normalize. She did not require any pressors. Initial creatinine was 1.6, today she is down to 0.8. She has had no further black or bloody vomitus or stools. We did give sliding scale insulin for blood sugars. Of course Eliquis was held throughout the hospitalization. Diet was advanced to full liquids which she tolerated well. DISCHARGE PHYSICAL EXAM: Vital signs: Blood pressure is 133/71 with a heart rate of 81, respirations 16, temperature is 97.9 degrees with room air saturations 94 to 96 percent. Cardiovascular: Regular rate and rhythm. S1 and S2 appreciated. She has no lower extremity edema. Calves are nontender bilateral. Pulmonary: Breath sounds are clear. No increased work of breathing noted. Chest rises and fall symmetric with respiration. Gastrointestinal: Abdomen is soft, nontender, nondistended with bowel sounds in all 4 quadrants. Neurologic: She is alert, oriented x3. DISCHARGE MEDICATIONS: 1. Onglyza 5 mg p.o. daily. 2. Pravachol 10 mg p.o. daily. 3. Potassium 10 mEq p.o. daily. 4. Protonix 40 mg p.o. daily. 5. Centrum Silver 1 p.o. daily. 6. Metformin 500 mg p.o. b.i.d. 7. Lisinopril 20 mg p.o. daily. 8. Icar-C 1 p.o. b.i.d. 9. Glyburide 2.5 p.o. daily. 10. Lasix 20 mg p.o. daily. 11. Ferrous sulfate 325 p.o. with breakfast. 12. Coreg 3.125 p.o. b.i.d. 13. The patient is to hold her Eliquis. This will be restarted per her primary care physician or Gastroenterology . FOLLOWUP: 1. Dr. Phyllis Oconnor as previously scheduled. 2. Dr. Elmer Bell 05/05/2019 at 9:[address] Jarek Blank 04/28/2019 at 9:20 a.m. She has been instructed to call to be seen sooner or return to the emergency room for any syncope, dizziness, chest pain, palpitations, any shortness of breath, cough, fever, chills, temperature greater than 101, any nausea, vomiting, diarrhea, constipation, black or bloody vomitus or stools, any hematuria, dysuria, frequency or urgency. She is being discharged home in stable condition with family members and she will resume home health with [facility] as before hospitalization. TIME SPENT: Greater than 30 minutes. Dictated by ZAK Reza for Jarrett Carrera MD cc: ZAK Reza MD
== END 2019-04-21 12:40 | disposition home health service (06) | DRG 377 ==
LOC: P.ED 11:24 → SUATTDRO 11:25 → 2N 11:25
PROVIDERS: ATTEND Internal Medicine

== ENCOUNTER 2019-04-30 16:40 | Inpatient (IN) ==
[2019-04-30] MEDS ORDERED: NS 500 ML IV ONE ×3 (17:37→20:23)
[2019-04-30 18:07] LABS: BASO# 0.02 X1000 (0.0-0.2); BASO% 0.1 % (0.0-0.8); EOS# 0.02 X1000 (0.0-0.7); EOS% 0.1 % (0.0-10.0); HEMATOCRIT 18.6 % (37.0-47.0); HEMOGLOBIN 5.6 g/dL (12.0-16.0); IMM GRAN# 0.05 X1000 (0.0-0.04); IMM GRAN% 0.3 % (0.0-0.5); INR 1.01; LYMPH# 1.86 X1000 (1.2-3.4); LYMPH% 12.3 % (20.5-51.1); MCH 29.9 PG (27-31); MCHC 30.1 g/dL (33-37); MCV 99.5 FL (81-99); MONO# 1.17 X1000 (0.11-0.59); MONO% 7.7 % (1.7-9.3); MPV 9.5 FL (7.4-10.4); NEUT# 12.06 X1000 (1.4-6.5); NEUT% 79.5 % (42.2-75.2); PLT 509 X1000 (130-400); PROTIME 13.8 Seconds (11.0-16.0); RBC 1.87 XMIL (4.2-5.4); RDW 20.6 % (11.5-14.5); WBC 15.18 X1000 (4.8-10.8)
[2019-04-30] MEDS ORDERED: BENADRYL PO ONE (18:08)
[2019-04-30 18:19] LABS: ALBUMIN 2.8 g/dL (3.5-5.0); CALCIUM 8.7 mg/dL (8.8-10.2); CREATININE 1.8 mg/dL (0.5-0.9); TOTAL BILIRUBIN 0.2 mg/dL (0.20-1.00); TOTAL PROTEIN 5.1 g/dL (6.3-8.3)
[2019-04-30 18:21] LABS: POTASSIUM 6.3 mmol/L (3.5-5.1)
[2019-04-30] MEDS ORDERED: KAYEXALATE PO ONE (18:43)
--- NOTE | 2019-04-30 18:54 | PROVIDER DOCUMENTATION ---
This chart was entered by Sophy Olivares Scribe, acting as scribe for Kj Milian MD. HPI-General Adult - General Chief Complaint: Weakness Stated Complaint: LOW O2 / WEAK Time Seen by Provider: 04/30/19 17:33 Source: patient, family (daughters) Allergies/Adverse Reactions: Patient Allergies Allergy/AdvReac Type Severity Reaction Status Date / Time adhesive tape Allergy RASH Verified 04/15/19 14:43 Penicillins Allergy ANAPHYLAXIS Verified 03/22/18 18:12 Home Medications: Home Medication List Medication Instructions Recorded Confirmed Last Taken Type PRAVAstatin [Pravachol] 10 mg PO DAILY 03/29/17 04/30/19 Unknown History Saxagliptin [Onglyza] 5 mg PO DAILY 03/29/17 04/30/19 03/29/17 History Carvedilol [Coreg] 3.125 mg PO BID 02/20/19 04/30/19 Unknown History Furosemide [Lasix] 20 mg PO DAILY 02/20/19 04/30/19 Unknown History Glyburide 2.5 mg PO DAILY 02/20/19 04/30/19 Unknown History LISINOpril [Prinivil] 20 mg PO DAILY 02/20/19 04/30/19 Unknown History Metformin [Glucophage] 500 mg PO BID CC 02/20/19 04/30/19 Unknown History Ferrous Sulfate 325 mg PO WBREAKFAST tab 02/21/19 04/30/19 Unknown Rx Potassium Chloride 10 meq PO DAILY 04/15/19 04/30/19 Unknown History Acetaminophen [Tylenol] 650 mg PO Q6H PRN PRN tab 04/21/19 04/30/19 Unknown Rx Iron Carbonyl/Ascorbic Acid 1 ea PO BID #90 tab 04/21/19 04/30/19 Unknown Rx [Icar-C] Multivitamins/Minerals [Centrum 1 ea PO DAILY #90 tab 04/21/19 04/30/19 Unknown Rx Silver] Pantoprazole [Protonix] 40 mg PO DAILY@0700 #120 tab 04/21/19 04/30/19 Unknown Rx - History of Present Illness -Gen Adult Nature of Presenting Problems: 83yof presents to ED cc weakness, low o2(77-87% on RA), low b/p and dark, tarry, smelly stools for 1 week. Daughters are at bedside and report pt was admitted to [facility] 04/15/19 for GI bleed and was released 1 week ago. Pt was taken off Eliquis while in hospital and hasn't started it back. Pt has needed more assistance over last week. Pt is a pt of Dr. Lane/cardio, Dr. Bell/GI and Dr. Foster/PCP. Pt b/p is 89/48 and o2 is 79% on ra upon exam. Location of Pain/Injury: reports: generalized Severity: reports: moderate Onset/Duration: reports: 1 week ago Timing: reports: still present Context/Activities at Onset: reports: light activity Modifying Factors: improves with: nothing Associated Symptoms: reports: fatigue, weakness Similar Symptoms Previously?: Yes Recently seen or treated by another doctor?: Yes (was admitted inpatient to [facility] 04/15/19) Review of Systems - Adult - REVIEW OF SYSTEMS - ADULT Constitutional: reports: see HPI, fatique. denies: chills, fever Eyes: reports: no symptoms reported Ears, Nose, Mouth & Throat: reports: no symptoms reported Cardiovascular: reports: see HPI, other (low b/p). denies: chest pain Respiratory: reports: see HPI, other (low o2). denies: cough Gastrointestinal: reports: see HPI, rectal bleeding Genitourinary: reports: no symptoms reported Musculoskeletal: reports: no symptoms reported Integumentary: reports: no symptoms reported Neurological: reports: no symptoms reported Psychiatric: reports: no symptoms reported Endocrine: reports: no symptoms reported Hematologic/Lymphatic: reports: no symptoms reported Allergic/Immunologic: reports: no symptoms reported All Other Systems: Reviewed and Negative Past History - Adult - PAST MEDICAL HISTORY-ADULT Review of Records: reports: Old Records Reviewed, Nursing Assessment Review, Medications Reviewed, Social history reviewed & non-contributory. Major Childhood Illnesses: reports: denies history Cardiovascular: reports: A-Fib, CHF, HTN Respiratory: reports: denies history Gastrointestinal: reports: denies history Obstetrical/Gynecological: reports: denies history Genitourinary: reports: denies history Musculoskeletal: reports: denies history Neurological: reports: denies history Endocrine/Immune: reports: Diabetes Other Conditions: reports: denies history - PRIOR SURGERIES/PROCEDURES Surgical/Procedure History: reports: appendectomy, orthopedic (extremity) - IMMUNIZATION STATUS Childhood Immunizations: See Nurse Assessment Flu Vaccine: See Nurse Assessment - FAMILY HISTORY Family History: reviewed, not pertinent - SOCIAL HISTORY Smoking: denies Physical Exam-General - PHYSICAL EXAM-ADULT Initial Vital Signs Reviewed: Yes - CONSTITUTIONAL General Appearance: appears well, alert, no apparent distress. negative: anxious, combative - EYES Eyes: PERRL/EOMI, pink conjunctivae - HEAD, EARS, NOSE, MOUTH & THROAT HENMT: normocephalic/atraumatic, moist mucous membranes. negative: angioedema - NECK Neck: normal inspection - RESPIRATORY Respiratory: chest non-tender, lungs clear, normal breath sounds. negative: wheezing - CARDIOVASCULAR Cardiovascular: normal peripheral pulses, no edema, tachycardia. negative: bradycardia - GASTROINTESTINAL (ABDOMEN) Abdominal Exam: normal bowel sounds, non tender, soft. negative: rebound - MUSCULOSKELETAL Extremity: normal inspection. negative: deformity - SKIN Integumentary: normal color. negative: diaphoresis, jaundice - PSYCHIATRIC Psych/Mental Status: normal mood/affect, oriented x 3. negative: anxious, disheveled Progress - PLAN OF CARE/RESULTS Progress/Plan/Lab Results: Vital Signs - 8 hr 04/30/19 16:45 Temperature 97.4 F L Pulse Rate 120 H Respiratory Rate 18 Blood Pressure 72/43 O2 Sat by Pulse Oximetry 97 Result Diagrams: 04/30/19 17:15 04/30/19 17:15 - REASSESSMENT Reassessment #1 Time Reassessed: 18:47 Status: unchanged (INITAL HGB IS 5.6, ORDERING PRBCs, INITAL K+ 6.3: REPEATING. WILL NEED ICU BED.) - CONSULTS/PCP/HOSPITALIST Notification #1 *Consult/PCP/Hospitalist*: DR GUADARRAMA Time Discussed: 18:20 Consult Disposition: other (I AM TO CALL DR BLANK) #2 Consult: DR BLANK Time Discussed: 18:45 Consult Disposition: Admit (ADMIT TO ICU AT [facility] TO HIS NAME IF NEEDED OR ADMIT TO [facility] IF NO ICU BED AT [facility].) #3 Consult: DR GUADARRAMA Time Discussed: 18:51 Consult Disposition: Admit (ADMIT TO [facility], DR GUADARRAMA WILL WRITE THE ORDERS.) Departure - Departure Date of Disposition Decision: 04/30/19 Time of Disposition Decision: 18:52 DIAGNOSIS: Hypoxemia, Hyperkalemia Hypotension Qualifiers: Hypotension type: orthostatic hypotension Qualified Code(s): I95.1 - Orthostatic hypotension GI bleed Qualifiers: GI bleed type/associated pathology: unspecified gastrointestinal hemorrhage type Qualified Code(s): K92.2 - Gastrointestinal hemorrhage, unspecified Anemia Qualifiers: Anemia type: iron deficiency Iron deficiency anemia type: chronic blood loss Qualified Code(s): D50.0 - Iron deficiency anemia secondary to blood loss (chronic) Disposition: ADMITTED INPATIENT [facility] Medical Emergency: Emergent Condition: Stable Additional Instructions: ED Follow Up Instructions: You have been treated by a care provider in the Emergency Department. These instructions are being provided to you so you can have an understanding of how to care for yourself upon discharge. Upon discharge from the Emergency Department, you are responsible for making arrangements for follow-up care by a physician of your choice. Take all prescribed medications as directed. Return to the Emergency Department immediately for any new or worsening symptoms. You may call the Physician Referral phone number at [phone] to obtain a list of Physicians who are taking new patients. Referrals and Follow-Ups: Jarek Blank MD [Primary Care Provider] - - Critical Care Note This patient required my direct & personal management of CC.: Yes Total Time (mins): 33 Critical Care Statement: This patient required my direct personal management to treat or rule out processes, the absence of which, could potentiallly result in sudden, clinically significant life or limb threatening deterioration. Attestation - Physician/ VALERI Attestation Patient care was provided by Advanced Practice Provider:: No The physician spent face to face time with patient:: Yes Advanced Practice Provider documentation review:: Supervising physician onsite and consulted in the evaluation and care of this patient. The physician did have a face to face encounter with the patient. This chart was documented by the indicated scribe, (Sophy Olivares Scribe) and accurately reflects the services I performed and decisions made by me, Kj Puckett MD, as attested by the provider's signature.
--- NOTE | 2019-04-30 21:01 | EKG Report ---
Test Performed on : 04/30/2019 8:31:30 PM Test Reason : elevated potassium Blood Pressure : / mmHG Vent. Rate : 075 BPM Atrial Rate : 050 BPM P-R Int : 000 ms QRS Dur : 118 ms QT Int : 426 ms P-R-T Axes : 000 -51 113 degrees QTc Int : 475 ms Atrial fibrillation. Incomplete right bundle branch block Left anterior fascicular block Septal infarct (cited on or before 15-APR-2019) Abnormal ECG When compared with ECG of 15-APR-2019 11:43, (Unconfirmed) Questionable change in initial forces of Septal leads Confirmed by Edin BERNARDO, P.J.M ([id number]) on 05/02/2019 5:36:29 PM
--- NOTE | 2019-04-30 21:45 | Diag Imaging Result Doc PS360 ---
EXAM: CHEST-1 VIEW - 04/30/2019 HISTORY: weakness,hypoxia,GI Bleed TECHNIQUE: One view chest COMPARISON: 04/15/2019 FINDINGS: Heart size appears upper normal. The lungs appear clear. There is no pleural effusion or pneumothorax identified. IMPRESSION: No evidence of acute disease. Electronically signed by Frank Loja 04/30/2019 9:42 PM
[2019-04-30] MEDS: NS 1,000 ML IV SCH (22:45)
[2019-05-01 02:44] LABS: HEMATOCRIT 24.5 % (37.0-47.0); HEMOGLOBIN 7.5 g/dL (12.0-16.0)
[2019-05-01 03:22] LABS: CALCIUM 7.9 mg/dL (8.8-10.2); CREATININE 1.4 mg/dL (0.5-0.9); POTASSIUM 4.9 mmol/L (3.5-5.1)
[2019-05-01] MEDS ORDERED: ZOFRAN IV PRN (03:29)
[2019-05-01] MEDS ORDERED: D50W SYRINGE IV PRN ×2 (03:30→03:35)
[2019-05-01] MEDS ORDERED: PROTONIX IV SCH (03:30)
[2019-05-01] MEDS ORDERED: SODIUM CHLORIDE 0.9% INJ SCH (03:30)
[2019-05-01] MEDS ORDERED: D50W SYRINGE IV ONE ×2 (03:30→03:35)
[2019-05-01 04:35] LABS: URINE SOURCE CLEAN CATCH
[2019-05-01 04:40] LABS: BILIRUBIN URINE NEGATIVE (NEGATIVE); BLOOD URINE NEGATIVE (NEGATIVE); COLOR YELLOW; GLUCOSE URINE NEGATIVE (NEGATIVE); KETONE URINE NEGATIVE (NEGATIVE); LEUKOCYTES URINE SMALL (NEGATIVE); NITRITE URINE NEGATIVE (NEGATIVE); PROTEIN URINE NEGATIVE (NEGATIVE); SP GRAVITY URINE 1.015; TURBIDITY URINE CLEAR (CLEAR); UR EPITHELIAL CELLS <10 /HPF (<10); URINE BACTERIA 2+ /HPF; URINE RBC <10 /HPF (<10); URINE WBC <10 /HPF (<10); UROBILINOGEN URINE NORMAL (NORMAL)
--- NOTE | 2019-05-01 05:57 | Diag Imaging Result Doc PS360 ---
EXAM: CT ABDOMEN/PELVIS W/O CONTRAST HISTORY: gi bleding TECHNIQUE: CT abdomen and pelvis without contrast. COMPARISON: None FINDINGS: The heart is mildly enlarged. No calcified gallstones or adjacent inflammation. No focal hepatic abnormality identified on this noncontrasted exam. No splenomegaly. There are scattered splenic granuloma. No inflammation about the pancreas. Normal adrenal glands. No renal stones. No hydronephrosis. No aortic aneurysm. Moderate atherosclerosis. There is stool throughout the colon. No bowel obstruction. There are scattered colonic diverticula. The urinary bladder is distended and appears normal. Prominent uterus for 89-year-old containing measuring approximately 7x 8 x 9 cm with multiple calcifications and likely a large fibroid. Bilateral hip arthritis and prominent degenerative changes in the lumbar spine with mild scoliosis. Prior orthopedic surgery to the right femur. IMPRESSION: 1.Cardiomegaly 2.Mild constipation with colonic diverticulosis 3.Prominent uterus with a large fibroid multiple calcifications 4.A preliminary report was given at 12:03 AM This exam was performed using automated exposure control, adjustment of mA or kV according to patient size, and/or use of iterative reconstruction technique. Electronically signed by Rayshawn Huitron 05/01/2019 5:55 AM
[2019-05-01 06:41] LABS: INR 1.1; PROTIME 14.3 Seconds (11.0-16.0)
[2019-05-01 06:50] LABS: BASO# 0.01 X1000 (0.0-0.2); BASO% 0.1 % (0.0-0.8); EOS# 0.13 X1000 (0.0-0.7); EOS% 1.2 % (0.0-10.0); HEMATOCRIT 29.7 % (37.0-47.0); HEMOGLOBIN 9.3 g/dL (12.0-16.0); IMM GRAN# 0.05 X1000 (0.0-0.04); IMM GRAN% 0.4 % (0.0-0.5); LYMPH# 1.63 X1000 (1.2-3.4); LYMPH% 14.6 % (20.5-51.1); MCH 27.8 PG (27-31); MCHC 31.3 g/dL (33-37); MCV 88.7 FL (81-99); MONO# 1.07 X1000 (0.11-0.59); MONO% 9.6 % (1.7-9.3); MPV 8.9 FL (7.4-10.4); NEUT# 8.25 X1000 (1.4-6.5); NEUT% 74.1 % (42.2-75.2); PLT 368 X1000 (130-400); RBC 3.35 XMIL (4.2-5.4); RDW 20.3 % (11.5-14.5); WBC 11.14 X1000 (4.8-10.8)
[2019-05-01 07:02] LABS: ALBUMIN 2.5 g/dL (3.5-5.0); CALCIUM 8.2 mg/dL (8.8-10.2); CREATININE 1.4 mg/dL (0.5-0.9); PHOSPHORUS 3.1 mg/dL (2.7-4.5); POTASSIUM 4.6 mmol/L (3.5-5.1)
[2019-05-01] MEDS: NS 1,000 ML IV SCH ×2 (07:52→17:02)
--- NOTE | 2019-05-01 10:42 | PROGRESS NOTE ---
DATE: 05/01/2019 SUBJECTIVE: The patient seems to be feeling better. She is not complaining of chest pain or shortness of breath. Her blood pressure as well as her hemoglobin are better. We have requested reevaluation by Gastroenterology Department. We will continue to monitor. OBJECTIVE: Vital Signs: Temperature 98, pulse 71, respiratory rate 17, blood pressure 110/64, oxygen saturation 99 on room air. HEENT: Head normocephalic. No trauma. PERRLA. Neck: Supple. No JVD. No masses. Central trachea. Chest: Clear to auscultation. No wheezing. No rales. Abdomen: Soft, nontender, nondistended. No hepatosplenomegaly. Extremities: Trace edema. No clubbing, no cyanosis. Neurological examination: The patient is alert. She is oriented x3. No focal deficit. LABORATORY: WBC 11.1, hemoglobin 9.3, hematocrit 29.7, platelet 268. Sodium 138, potassium 4.6, chloride 105, bicarbonate 22, BUN 40, creatinine 1.4, glucose 118, calcium 8.2, phosphorus 3.1, albumin 2.5. ASSESSMENT AND PLAN: 1. Upper gastrointestinal bleed, as per the patient she was having some black stools upon discharge on 04/21/2019 but that got worse at home, and she was weaker. When she came to the emergency department, her hemoglobin was around 5.6. Gastroenterology Department has been consulted. She received some PRBCs and her hemoglobin improved to 9.3. 2. Hypovolemic shock on presentation, resolved. 3. Hypoxemia on presentation likely due to severe anemia, resolved. She seems to be better. She is on room air and the oxygen saturation has been in the high 90s. 4. History of atrial fibrillation, rate-controlled. She used to be on anticoagulation, which has been already stopped since her last hospitalization. 5. Type 2 diabetes. Continue with same management. 6. Recent left intertrochanteric hip fracture status post orthopedic intervention on 02/21/2019. Aware. 7. Acute kidney injury, this is getting better. Continue with same management. 8. Iron-deficiency anemia probably due to chronic gastrointestinal loss, will monitor. cc: Jarrett Carrera MD
[2019-05-01 10:44] LABS: HEMOGLOBIN 9.8 g/dL (12.0-16.0)
--- NOTE | 2019-05-01 12:31 | HISTORY AND PHYSICAL ---
PRIMARY CARE PROVIDER: Dr. Jarek Blank. DATE AND TIME: 04/30/2019 at 2200. CHIEF COMPLAINT: Weakness. HISTORY OF PRESENT ILLNESS: Ms. Mirza is an 83-year-old female who was just recently discharged from our facility on 04/21/2019. During this admission, she was diagnosed with gastrointestinal bleeding, presumably diverticular in origin. She did have hypovolemic shock on presentation secondary to acute blood loss, though this was resolved without the need for pressors. She also did have symptomatic anemia as well. Dr. Bell of Gastroenterology was consulted. He did perform EGD and colonoscopy. EGD revealed that mucosa of the esophagus appeared normal. There was some erosive gastritis in the body and antrum noted. No ulcers. No active bleeding. The duodenal mucosa showed no abnormalities in the duodenal bulb, the first part of the duodenum and second part of the duodenum. The colonoscopy showed that the mucosa of the terminal ileum appeared normal, though there was a significant amount of blood found throughout the entire examined colon. There was mild nonbleeding diverticulosis that was noted in the sigmoid colon. There were some small internal hemorrhoids, though he believed that her rectal bleeding was likely from a diverticular bleed. The patient, upon this admission, was on anticoagulant of Eliquis due to chronic atrial fibrillation. This has been stopped since her discharge. She denies taking any [id number] NSAIDs, antiplatelets, or anticoagulants at this time. The patient states that since being discharged, she still continues to have black, tarry stools. She states she did go and see Dr. Blank approximately 4 days ago for a followup appointment, and that she was still concerned that she was having the dark stools. She reports that he informed her that she may still have some dark stools for a few days to a week after having a gastrointestinal bleed, though if she started having other associated symptoms with this, to return to the ER for evaluation. The patient states that since that time, she has continued to have worsening fatigue, shortness of breath, and weakness. She states that she got to where she was having trouble even walking to the bathroom, and felt like her whole entire body felt heavy like somebody was pushing down on her shoulders when she was trying to walk. Today, her symptoms became much worse. They did bring her to the [facility] ER for further evaluation. Upon evaluation in the ER, she was noted to be anemic with a hemoglobin of 5.6, hematocrit 18.6. PT was 1.01. She also did have hypotension upon presentation, as well as hypoxia. ER notes from [facility] did note that she did have oxygen saturations that were in the high 70s to mid 80s on room air. She did have blood pressure that was in the 80s systolically. She also did have acute kidney injury with associated hyperkalemia. This was likely secondary to volume depletion. She will be transferred to [facility] to the ICU for close monitoring, further treatment, and evaluation. REVIEW OF SYSTEMS: A 14-point review of systems was conducted with the patient. Pertinent symptoms are mentioned in the above HPI, though she denies any headache, dizziness, or feeling lightheaded. She denies any chest pain. She is reporting shortness of breath, though states this is only exertional dyspnea. She is not short of breath at rest. She denies any cough, any fever or body aches, though states that she has felt chilled over the past few days. She denies any abdominal pain at present, though she states that last night prior to lying down to go to bed, she did have a period where she had some crampy, sharp, left lower quadrant abdominal pain. She states she took a Tylenol and laid down, and this did subside. She is not reporting any nausea or vomiting. She is reporting the black, tarry stools as previously mentioned. She denies any dysuria or urinary frequency. She denies any other pain, numbness, tingling, or swelling in extremities. PAST MEDICAL HISTORY: 1. Hyperlipidemia. 2. Hypertension. 3. Reported history of congestive heart failure. 4. Diabetes mellitus type 2. 5. Chronic atrial fibrillation. 6. Recent history of gastrointestinal bleed. PAST SURGICAL HISTORY: 1. Appendectomy. 2. Left hip surgery secondary to fracture on 02/21/2019. 3. She also has a history of right hip surgery. SOCIAL HISTORY: The patient is . She does live alone, though does have a family member that stays with her day and night. She states that her daughters take turns doing this. She has no known history of tobacco, alcohol, or illicit drug use. FAMILY HISTORY: Positive for her father having a history of prostate cancer. Her mother had a history of diabetes. She also had a sister who had a history of diabetes as well. ALLERGIES: The patient reports allergies to penicillin and adhesive tape. HOME MEDICATIONS: 1. Coreg 3.125 mg p.o. b.i.d. 2. Ferrous sulfate 325 mg p.o. with breakfast. 3. Lasix 20 mg p.o. daily. 4. Glyburide 2.5 mg p.o. daily. 5. Icar-C 1 p.o. b.i.d. 6. Lisinopril 20 mg p.o. daily. 7. Metformin 500 mg p.o. b.i.d. 8. Centrum Silver multivitamin 1 tablet p.o. daily. 9. Protonix 40 mg p.o. daily. 10. Potassium chloride 10 mEq p.o. daily. 11. Pravastatin 10 mg p.o. daily. 12. Onglyza 5 mg p.o. daily. DIAGNOSTIC DATA: White blood cell count is 15,180, hemoglobin 5.6, hematocrit 18.6, platelet count is 509,000. PT 13.8, INR 1.01. Sodium 137, potassium 6.3, chloride 104, serum bicarbonate is 19, BUN 53, creatinine 1.8, with a GFR of 27, glucose 209, calcium 8.7, magnesium 1.8. Liver function tests within normal limits. Alkaline phosphatase is slightly elevated at 141. CK 31. Troponin 0.012. Urinalysis did contain a small amount of leukocytes and 2+ bacteria, though the patient is asymptomatic. Urine was negative for protein, glucose, ketones, blood, nitrites, bilirubin, and white blood cells. Portable chest x-ray did not show any evidence of acute disease. CT of the abdomen and pelvis without contrast did show: 1. Cardiomegaly. 2. Mild constipation with colonic diverticulosis. 3. Prominent uterus with large fibroid, multiple calcifications. 4. This is per Radiology. EKG showed atrial fibrillation, incomplete right bundle-branch block, and a left anterior fascicular block at a rate of 75 with a QTc of 475. PHYSICAL EXAMINATION: VITAL SIGNS: Temperature 97.9 degrees, heart rate 76, respirations 19, blood pressure 109/63, oxygen saturation is 97% on room air. GENERAL: Ms. Mirza is a very pleasant, 83-year-old, female. She was resting in the ICU bed. She was in no acute distress. She was resting with her eyes closed upon my initial arrival to the room, though did awaken easily with verbal stimulation. Once awoken, she was alert and oriented to person, place, time, and situation. She was able to answer questions appropriately and follow commands. HEENT: Head is atraumatic, normocephalic. Pupils are equal, round, reactive to light, were 3 mm bilaterally and brisk. Subconjunctivae were pale. Oral mucosa was slightly dry. Oropharynx is clear. NECK: Supple. Trachea midline. CARDIOVASCULAR: The patient had S1, S2 present. There were no murmurs, gallops, or rubs appreciated, though she did have a rate that was maintaining in the 70s to 80s, though she did have an irregularly irregular rhythm. PULMONARY: The patient has symmetrical chest expansion bilaterally. Lung sounds are clear to auscultation in bilateral full estrella. ABDOMEN: Soft, nontender, does not appear to be overtly distended, though the patient does have a slightly protuberant abdomen noted. Bowel sounds were present in all 4 quadrants and were normoactive. EXTREMITIES: No cyanosis or edema noted. Pulse, motor, and sensory were intact in all extremities. Radial and pedal pulses were 2+ bilaterally. SKIN: The patient's skin is slightly pale, though is warm and dry. NEUROLOGICAL: The patient is alert and oriented to person, place, time, and situation. She is able to move all extremities. There were no focal neurological deficits noted. ASSESSMENT AND PLAN: 1. Gastrointestinal bleed. The patient is reporting very similar symptoms to her last presentation. She has had black, tarry stools with symptomatic anemia. She did report a brief period of left lower quadrant abdominal cramping and sharp pain last night that resolved with Tylenol, though other than that, she is not reporting any abdominal pain. She was severely anemic upon arrival to the emergency room, though she has received a total now of 3 units of packed red blood cells. She has also received a 500 mL normal saline bolus, and we have continued normal saline at 100 mL/h. We will monitor her fluid volume status closely. She does have a history of congestive heart failure, though at this time, she is volume depleted. Since that time, her blood pressure as well as her oxygen saturation have all improved. She is hemodynamically stable. She is in the intensive care unit for close monitoring. Will do continuous cardiac telemetry, pulse oximetry, and frequent vital signs. We will continue with a series of hemoglobin and hematocrit checks. We have placed her with Protonix 40 mg intravenously every 12 hours. She is nothing by mouth at this time. We will also order an anemia profile as well. We have placed a consult with Gastroenterology. Will await their evaluation and further recommendations for management. 2. Symptomatic anemia. Will continue with treatment as mentioned above for #1. The patient has received blood transfusion, and since that time, as well as fluid administration, her symptoms have improved. 3. Hypotension. This is likely secondary to volume depletion. As previously mentioned, this has improved with blood transfusions and intravenous fluid administration. We will continue to monitor this closely. 4. Acute kidney injury. This is likely secondary to hypotension and fluid volume depletion. She did have associated hyperkalemia, though this did resolve with administration of fluids and improvement of the patient's blood pressure. We actually did not have to give her anything to treat her potassium. Her initial potassium was 6.3, though upon recheck 2 hours later, it had improved to 5.6, and this morning had improved to 4.9. Her renal function is also improving as well. We will continue to monitor this closely though. We will avoid nephrotoxic medications, and renally dose medicines as necessary. She does have gentle intravenous fluids going at this time. 5. Hypoglycemia. The patient does have a history of diabetes mellitus, and normally does take glyburide, metformin, and Onglyza, though she is nothing by mouth at this time and these medications are being held. We are doing every 4 hour fingerstick blood sugars to monitor her for any further hypoglycemia. We have placed as needed orders for D50 intravenous administration if needed as well. 6. History of congestive heart failure. The patient actually is volume depleted at this time. We are performing gentle fluid resuscitation. Her blood pressure has improved. We will continue to monitor her fluid volume status closely given her history. We will do strict intake and output. 7. Deep venous thrombosis prophylaxis will be provided with sequential compression devices. The patient has been placed in intensive care unit for close monitoring. Will do repeat CBC, PT, BMP, and anemia profile in the morning. Further orders and recommendations pending hospital course, diagnostic studies, and physician evaluation. Dictated by ZAK Harvey for Calin Castillo MD I have performed a face to face diagnostic evaluation. Labs/ Xray- reviewed, Exam- Chest- clear, CV- regular, Abdomen- soft. A/P- GI Bleed- Admit, NPO, GI consult, Transfuse PRBC. Dr. Castillo cc: MD Jarek Mueller MD [facility]
[2019-05-01] MEDS ORDERED: DIPRIVAN 1% ONE (14:01)
[2019-05-01] MEDS ORDERED: XYLOCAINE-MPF 2% ONE (14:13)
--- NOTE | 2019-05-01 14:38 | ENDOSCOPY OPERATIVE NOTE ---
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 .. PROCEDURE PERFORMED: EGD, diagnostic MEDICATIONS: Per Anesthesia TOPICAL ANESTHETIC: none CONSENT: The patient understands the risks and benefits of the procedure and understands that these r isks include, but are not limited to: sedation, allergic reaction, infection, perforation and/or bleeding. Alternative means of evaluation and treatment include, among others: physical exam, x-rays, and/or surgical intervention. The patient elects to proceed with this endoscopic procedure. HISORY AND PHYSICAL: 05/01/2019 DESCRIPTION OF PROCEDURE: During intra-op preparation period all mechanical and medical equipment was checked for proper function. Hand hygiene and appropriate measures for infection prevention was taken. After the risks, benefits and alternatives of the procedure were thoroughly explained, Informed consent was verified, confirmed and timeout was successfully executed by the treatment team. The patient was anesthetized with topical anesthesia and the WO35-[id number] ([id number]) endoscope was introduced through the mouth and advanced to the second portion of the duoden um. Retroflexion was performed in the stomach and revealed no abnormalities. The gastroscope was then slowly withdraw n and removed. ESOPHAGUS: The mucosa of the esophagus appeared normal. STOMACH: Moderate gastritis (inflammation) was found in the entire examined stomach. DUODENUM: The duodenum was normal. SPECIMENS REMOVED: No ADVERSE EVENTS: There were no complications. POSTOPERATIVE DIAGNOSIS: 1. The mucosa of the esophagus appeared normal 2. Gastritis (inflammation) was found in the entire examined stomach 3. The duodenum was normal RECOMMENDATIONS: Clear liquid diet If patient develops recurrent bleeding, then recommend tagged RBC scan Trend H/H daily, transfuse prn goal hgb 7-8 Avoid blood thinners Transition PPI to PO once daily Her hematochezia is likely diverticular REPEAT EXAM: Elmer Bell MD eSigned: Elmer Bell MD 05/01/2019 2:37 PM cc: PATIENT NAME: Jaky Mirza MR#: [id number]
--- NOTE | 2019-05-01 15:28 | GASTROENTEROLOGY CONSULTATION ---
DATE: 05/01/2019 REASON FOR CONSULT: Gastrointestinal bleed and anemia. HISTORY OF PRESENT ILLNESS: Ms Mirza is an 83-year-old female who was recently admitted on 04/16/2019 for GI bleed. GI was consulted and we did an EGD on 04/17, findings were, esophagus was normal, stomach had erosives gastritis in the the body and antrum, no ulcers and no bleeding. duodenum was normal. Colonoscopy was done on 04/18 and findings were, terminal ileum appeared normal, mild non- bleeding diverticulosis noted in the sigmoid colon, small internal hemorrhoids. The patient has come back with the same problem. She had gone to [facility] yesterday complaining of dark, tarry stools, and they had transfused her 1 unit of packed red blood cells and then sent her to [facility] and received 2 units of blood. So far, she has received 3 units of packed red blood cells. Her hemoglobin today is 9.8 and hematocrit is 31, on admission, it was 5.6 and 18.6. The patient used to take Eliquis for her atrial fibrillation for the last 2 years, but currently it is on hold. She also had a right hip surgery done by Dr. Ahn on 02/21/2019 and was discharged on 02/25/2019. The patient has denied any fever, chills, SOB, nausea, vomiting, or abdominal pain, but she does complain that she was feeling weak. PAST MEDICAL HISTORY: Diabetes, congestive heart failure, atrial fibrillation, coronary artery disease, hypertension. PAST SURGICAL HISTORY: Right hip surgery, appendectomy, and left knee surgery. ALLERGIES: To penicillin and tape. SOCIAL HISTORY: The patient is a . She has 5 kids, and she has denied any alcohol, smoking, or illicit drugs. FAMILY HISTORY: Her dad had prostate cancer. Mom had diabetes. Son had colon cancer at the age of 62. REVIEW OF SYSTEMS: As per HPI. Otherwise, 12-point review of system is negative. MEDICATIONS: The patient's home medications are pravastatin 10 mg daily, Onglyza 5 mg daily, glyburide 2.5 mg daily, lisinopril 20 mg daily, metformin 500 mg twice a day, Coreg 3.125 mg twice a day, Lasix 20 mg daily, ferrous sulfate 325 mg with breakfast, potassium chloride 10 mEq tablet daily, iron tablet 1 tablet p.o. daily, Tylenol 650 mg as needed every 6 hours, multivitamin 1 tablet daily, and Protonix 40 mg p.o. daily. PHYSICAL EXAMINATION: Vital Signs: Temperature 98.1 degrees, pulse 69, respirations 14, blood pressure 120/66, oxygen saturation 98% on room air. The patient's weight is 140 pounds. BMI is 22 kg/m2. General: She is alert, oriented x3. Answering questions appropriately and in no acute distress. HEENT: Pale conjunctivae, no icterus. PERRLA. Neck: Supple. Lungs: Clear to auscultation in the anterior estrella. Cardiovascular: Regular rate and rhythm. Abdomen: Soft, nontender, nondistended. Active bowel sounds heard in all 4 quadrants. Extremities: No clubbing, no cyanosis, no edema. Pedal pulses 2+ present bilaterally. Neurologic: Alert and oriented x3. Nonfocal. Cranial nerves 2 through 12 grossly intact. LABORATORY DATA: WBC is 11.14, RBC 3.25, hemoglobin 9.8, hematocrit 31, platelet count 368,000. PT 14.3, INR 1.1. Sodium 138, potassium 4.6, chloride 105, carbon dioxide 22, anion gap 11, BUN 40, creatinine 1.4, glucose 118, calcium 8.2, phosphorus 3.1, iron 81, albumin 2.5. Urinalysis showed small amount of leukocytes. Abdomen and pelvis CT showed cardiomegaly, mild constipation with chronic diverticulosis, prominent uterus with large fibroids, multiple calcifications. Chest x-ray showed no evidence of acute disease. ASSESSMENT AND PLAN 1. Gastrointestinal bleed. 2. Diabetes. 3. Congestive heart failure. 4. Diverticulosis. 5. Hemorrhoids. 6. Hypertension. 7. Atrial fibrillation. 8. Coronary artery disease. 9. Heart attack. PLAN: Ms. Mirza is an 83-year-old female who presented to the hospital with GI bleed and complaints of dark, tarry stools. GI has been consulted. Dr. Bell performed an EGD this afternoon, the esophagus appeared normal, gastritis in the entire stomach, and duodenum was normal. Patient is currently on clear liquids, we will continue to monitor her H & H and if she has recurrent GI bleed we will do the tagged RBC scan and transfuse PRBC's with the goal of 7-8. The patient is currently receiving IV fluids 100 mL/hour for hydration. She is on Protonix 40 mg twice a day for her GI bleed. We will continue to follow the plan of care per PCP. This plan was discussed with Dr. Bell. Thank you for your consultation. Please call us for any further questions or concerns. Dictated by ZAK Islas for Elmer Bell MD Physician Attestation I have seen and examined the patient. I have discussed and reviewed the note by Christina CRESPO and agree with findings and plan as documented. Patient represents with recurrent GI bleed likely diverticular. She had EGD x2 now that have been negative. Last colonoscopy showed old blood throughout the colon with normal terminal ileum consistent with colonic bleed. Continue supportive care. Clear liquid diet. If she has rebleed, then obtain tagged RBC scan. MTDD
[2019-05-01 16:37] LABS: HEMATOCRIT 32.4 % (37.0-47.0); HEMOGLOBIN 10.1 g/dL (12.0-16.0)
[2019-05-01] MEDS: PROTONIX PO SCH (16:53)
[2019-05-02] MEDS: NS 1,000 ML IV SCH (02:29)
[2019-05-02 05:04] LABS: BASO# 0.01 X1000 (0.0-0.2); BASO% 0.1 % (0.0-0.8); EOS# 0.17 X1000 (0.0-0.7); HEMATOCRIT 31.8 % (37.0-47.0); HEMOGLOBIN 9.8 g/dL (12.0-16.0); IMM GRAN# 0.04 X1000 (0.0-0.04); IMM GRAN% 0.5 % (0.0-0.5); LYMPH# 1.47 X1000 (1.2-3.4); LYMPH% 17.6 % (20.5-51.1); MCH 27.8 PG (27-31); MCHC 30.8 g/dL (33-37); MCV 90.1 FL (81-99); MONO# 0.76 X1000 (0.11-0.59); MONO% 9.1 % (1.7-9.3); MPV 8.7 FL (7.4-10.4); NEUT# 5.92 X1000 (1.4-6.5); NEUT% 70.7 % (42.2-75.2); PLT 367 X1000 (130-400); RBC 3.53 XMIL (4.2-5.4); RDW 21.6 % (11.5-14.5); WBC 8.37 X1000 (4.8-10.8)
[2019-05-02 05:55] LABS: CALCIUM 8.2 mg/dL (8.8-10.2); CREATININE 1.1 mg/dL (0.5-0.9); POTASSIUM 4.9 mmol/L (3.5-5.1)
[2019-05-02 05:56] LABS: IRON SATURATION 20 %; TIBC 134 ug/dL; TOTAL IRON 27 ug/dL (49-151); UNBOUND IRON 107 ug/dL (112-346)
[2019-05-02 06:11] LABS: FERRITIN 152 ng/mL (13-150)
[2019-05-02] MEDS ORDERED: ATROPINE IV ONE (07:12)
[2019-05-02] MEDS: PROTONIX PO SCH (08:21)
[2019-05-02 11:15] VITALS: BP 120/67
--- NOTE | 2019-05-02 12:14 | PROGRESS NOTE ---
DATE: 05/02/2019 SUBJECTIVE: This patient is feeling better. She had a good night. She has no complaint of chest pain or shortness of breath. Vital signs are stable. She had an esophagogastroduodenoscopy done today. OBJECTIVE: Vital Signs: Temperature 98.3 degrees, pulse 68, respiratory rate 17, blood pressure 123/72, and oxygen saturation 95% on room air. HEENT: Head normocephalic. No trauma. PERRLA. Neck: Supple. No JVD. No masses. Central trachea. Chest: Clear to auscultation. No wheezing. No rales. Abdomen: Soft, nontender, and nondistended. No hepatosplenomegaly. Extremities: Trace edema. No clubbing. No cyanosis. Neurological: The patient is awake and alert. She is oriented x3. No focal deficits. LABORATORY: WBC 8.3, hemoglobin 9.8, hematocrit 31.8, and platelets 367,000. Sodium 145, potassium 4.9, chloride 103, bicarbonate 20, BUN 22, creatinine 1.1, glucose 113, and calcium 8.2. ASSESSMENT AND PLAN: 1. Upper gastrointestinal bleed. This patient had an endoscopy done yesterday that showed gastritis, but the mucosa of the esophagus and the duodenum was normal. They recommended clear liquid diet if the patient develops recurrent bleeding, then recommend target RBC scan, trend hemoglobin and hematocrit daily, transfuse as needed. Avoid blood thinners and transition PPIs to p.o. instead of IV. Hemoglobin seems to be stable today. We will continue to monitor. 2. Hypovolemic shock on presentation resolved. 3. Hypoxemia on presentation likely due to severe anemia, resolved. 4. History of atrial fibrillation, rate controlled. She used to be on anticoagulation which has been already stopped since her last hospitalization. 5. Type 2 diabetes. Continue with same management. 6. Recent left intertrochanteric hip fracture status post orthopedic intervention on 02/21/2019. Aware. 7. Acute kidney injury. This is getting much better. Her BUN is normal and creatinine is 1.1 now with good urine output. 8. Anemia due to chronic GI loss. We will monitor. cc: Jarrett Carrera MD
--- NOTE | 2019-05-02 17:24 | GASTROENTEROLOGY PROGRESS NOTE ---
DATE: 05/02/2019 SUBJECTIVE: Ms. Mirza is an 83-year-old female. She is resting in bed. Family at the bedside. The patient has denied any nausea, vomiting, abdominal pain or bowel movements today. OBJECTIVE: Vital Signs: Temperature 98.7 degrees, pulse 72, respirations 14, blood pressure 122/63, oxygen saturation 100%. She is on room air. Her weight is 140 pounds. BMI is 22.0 kg/m2. General: She is alert and oriented x3, and in no acute distress. HEENT: Pale conjunctivae. No icterus. PERRL. Neck: Supple. Lungs: Clear to auscultation in the anterior estrella. Cardiovascular: Regular rate and rhythm. Abdomen: Soft, nontender, nondistended. Active bowel sounds heard in all 4 quadrants. Extremities: No clubbing. No cyanosis. No edema. Pedal pulses 2+ present bilaterally. Neurologic: She is alert and oriented x3. LABORATORY DATA: WBC is 8.37, RBC 3.53, hemoglobin 9.8, hematocrit 31.8, platelet count 367,000. PT 14.3, INR 1.0. Sodium 145, potassium 4.9, chloride 113, carbon dioxide 20, anion gap 12, BUN 22, creatinine 1.1, glucose 113, calcium 8.2. Iron is 27, TIBC 134. Urinalysis showed trace of leukocytes. IMPRESSION: 1. Gastrointestinal bleed. 2. Diabetes. 3. Congestive heart failure. 4. Diverticulosis. 5. Hemorrhoids. 6. Anemia. 7. Hypertension. 8. Atrial fibrillation. 9. Coronary artery disease. 10. Heart attack. PLAN: Ms. Mirza is a 83-year-old female, Gi is following her for anemia and GI bleed. Dr. Bell performed an EGD yesterday and the esophagus appeared normal. Gastritis in the entire stomach and duodenum was normal. The patient is currently on clear liquids. We will advance her diet. Her hemoglobin and hematocrit today is 9.8 and 31.8. If she has recurrent bleeding, we will do a tagged RBC scan and transfuse packed red blood cells with a goal of 7 to 8 g/dl. She is hemodynamically stable. The patient is currently on IV fluids and she is also receiving Protonix 40 mg twice a day for her GI bleed. We will continue to follow plan of care per PCP. This plan was discussed with Dr. Bell. Please call us for any further questions or concerns. Dictated by ZAK Islas for Elmer Bell MD Physician Attestation I have seen and examined the patient. I have discussed and reviewed the note by Christina CRESPO and agree with findings and plan as documented. Patient represents with recurrent GI bleed likely diverticular. She has had EGD x2 now that have been negative. Last colonoscopy showed old blood throughout the colon with normal terminal ileum consistent with colonic bleed. Hgb stable. Asymptomatic. Decrease PPI to once daily. Avoid blood thinners. Advance diet as tolerated. Ok to be discharged from GI perspective. If she has rebleed, then obtain tagged RBC scan first. MTDD
--- NOTE | 2019-05-03 18:18 | DISCHARGE SUMMARY ---
ADMISSION DATE: 04/30/2019 DISCHARGE DATE: 05/02/2019 DISCHARGE DIAGNOSES: 1. Gastrointestinal bleed status post endoscopy on 05/01/2019 that showed gastritis, per Gastroenterology Department her hematochezia is likely diverticular. 2. Hypovolemic shock on presentation resolved. 3. Hypoxemia on presentation likely due to severe anemia, resolved. 4. History of atrial fibrillation, rate controlled. She used to be on anticoagulation which has been already stopped since her last hospitalization. 5. Type 2 diabetes. 6. Recent left intertrochanteric hip fracture status post orthopedic intervention on 02/21/2019. 7. Acute kidney injury. 8. Anemia due to chronic gastrointestinal loss. PROCEDURES PERFORMED: Chest x-ray dated 04/30/2019 impression no evidence of acute disease. Abdomen and pelvis CT scan dated 04/30/2018 impression cardiomegaly, mild constipation with chronic diverticulosis, prominent uterus with large fibroid, multiple calcifications, procedure performed endoscopic procedure dated 05/01/2019 impression, there were no complication, the mucosa of the esophagus appeared normal, gastritis was found in the entire stomach, the duodenum was normal. HOSPITAL COURSE: An 83-year-old female recently discharged from our facility on 04/21/2019 now admitted on 04/30/2019 due to GI bleed presumably diverticular in origin, she actually came in with hypovolemic shock and hypoxemia due to severe anemia, she was transfused with multiple units of PRBCs and the hemoglobin improved from 5.6 to 9.8, she went for an endoscopic procedure that showed gastritis, Gastroenterology Department evaluated this patient, they have suggested that this bleeding is likely diverticular, they transitioned the PPI to p.o. once a day, we have stopped completely the blood thinner since her last hospitalizations, if patient develops recurrent bleeding again they recommended target RBC scan, patient seems to be feeling better today. Gastroenterology has recommended to discharge this patient since the bleeding is stopped and her vital signs are really good, I talked to the patient and the family at the bedside and they agree with the plan, I instructed them to come back immediately to the emergency department if the patient gets dizzy or if there is any signs of bleeding including melena. At this moment this patient is stable medical condition tolerating p.o. Vital signs: Temperature 98.9 degrees, pulse 68, respiratory rate 18, blood pressure 120/67, oxygen saturation 98 on room air. HEENT: Head normocephalic, no trauma. PERRLA. Neck: Supple. No JVD. No masses. Central trachea. Chest: Clear to auscultation. No wheezing. No rales. Abdomen: Soft, nontender, nondistended. No hepatosplenomegaly. Extremities: No edema, no clubbing, no cyanosis. Neurological: The patient is awake, alert, she is oriented x3. No focal deficits. LABORATORY: WBC 8.3, hemoglobin 9.8, hematocrit 31.8, platelets 367,000. Sodium 145, potassium 4.9, chloride 113, bicarbonate 20, BUN 22, creatinine 1.1, glucose 113, calcium 8.2. DISCHARGE MEDICATIONS: Acetaminophen 350 mg p.o. q.6 hours as needed, Coreg 3.125 mg p.o. b.i.d., ferrous sulfate 325 mg p.o. with breakfast, Lasix 20 mg p.o. daily, glyburide 2.5 mg p.o. daily, Icar C 1 tab p.o. b.i.d., lisinopril 20 mg p.o. daily, metformin 500 mg p.o. b.i.d., Centrum Silver 1 tablet p.o. daily, pantoprazole 40 mg p.o. daily, potassium 10 mEq p.o. daily, pravastatin 10 mg 10 mg p.o. daily an Onglyza 5 mg p.o. daily. TIME SPENT: 20 minutes. cc: Jarrett Carrera MD
== END 2019-05-02 13:32 | disposition home health service (06) | DRG 377 ==
LOC: P.ED 16:40 → SUATTDRO 16:41 → ICU 16:41
PROVIDERS: ATTEND Internal Medicine